=== PATIENT | male | born 2000 | race Caucasian/White ===

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

== ENCOUNTER → 2022-08-19 11:38 | Outpatient (CLI) | payer BC, SELFPAY ==
--- NOTE | 2022-08-19 11:52 | ECG_ITS ---
APPROVED REPORT Exam: Resting ECG HR:77 bpm ECG Measurements Heart Rate 77 AXES OH 137 P 37 QRSd 90 QRS 58 QT 345 T 32 QTc 377 Conclusion SINUS RHYTHM NORMAL ECG UNCONFIRMED REPORT Electronically signed by : Dave Patel MD 08/19/2022 19:43:06
--- NOTE | 2022-08-19 12:13 | XR_ITS ---
FINAL REPORT TECHNIQUE: Chest PA & Lateral CLINICAL HISTORY: PALPITATIONS AND DYSPNEA COMPARISON: February 2018 FINDINGS: 2 views of the chest were performed. The heart size is normal. The mediastinum is within normal limits. There is no acute cardiopulmonary process. There are no pleural effusions. There is no pneumothorax. The bony thorax appears intact. IMPRESSION: No acute cardiopulmonary process. Reviewed, Interpreted and Dictated by Lane Bolivar III, MD Transcribed by Jeremi Louis Authenticated and . [facility]
[2022-08-19 12:48] LABS: Basophils % 0.7 % (0.1-2.0); Eosinophils # 0.1 K/mm3 (0.0-0.4); Eosinophils % 0.9 % (0.1-12.0); Hematocrit 45.4 % (42.0-52.0); Hemoglobin 15.1 g/dL (14.1-18.0); Lymphocytes # 2.3 K/mm3 (0.7-4.5); Lymphocytes % 38.4 % (10-50); Mean Corpuscular HGB Conc 33.4 g/dL (31.8-35.4); Mean Corpuscular Hemoglobin 31.9 pg (27.0-31.2); Mean Corpuscular Volume 95.6 fl (80-94); Mean Platelet Volume 9.4 fl (7.4-10.4); Monocytes # 0.3 K/mm3 (0.1-1.0); Monocytes % 4.7 % (1.7-9.3); Neutrophils # 3.3 K/mm3 (1.8-7.8); Neutrophils % 55.3 % (37.0-80.0); Platelet Count 156 K/mm3 (142-424); Red Blood Count 4.74 M/mm3 (4.60-6.20); Red Cell Distribution Width 12.7 % (11.5-17.5)
[2022-08-19 12:59] LABS: Alanine Aminotransferase 20 U/L (12-78); Albumin Level 4.7 g/dl (3.5-5.0); Alkaline Phosphatase 61 U/L (38-126); Anion Gap 12.4 mEq/L (5-15); Aspartate Amino Transferase 33 U/L (17-59); Bilirubin,Total 0.7 mg/dl (0.2-1.3); Blood Urea Nitrogen 16 mg/dl (9-20); Carbon Dioxide 28 mmol/L (22.0-30.0); Chloride 103 mmol/L (98-107); Estimated Glomerular Filt Rate 123 ml/min (>60); GFR (African American) 149 ML/MIN (>60); Globulin 2.4 g/dL (1.3-3.2); Glucose 94 mg/dl (74-100); Potassium 4.4 mmoL/L (3.5-5.1); Sodium 139 mmol/L (136-145); Total Protein,Serum 7.1 g/dl (6.3-8.2)
[2022-08-19 13:16] LABS: Free Thyroxine Index 3.2 ug/dL (5.93-13.13); T4 (Thyroxine) 10.3 ug/dl (5.53-11.0); Triiodothryronine (T3) Uptake 31 % (23.5-40.5)
[2022-08-19 13:18] LABS: 25-OH Vitamin D, Total 45.1 ng/mL (30-100)
[2022-08-19 13:29] LABS: Thyroid Stimulating Hormone 4.03 uIU/mL (0.465-4.68)
[2022-08-19 13:49] LABS: Vitamin B12 495 pg/mL (239-931)
== END ==
PROVIDERS: PCP Internal Medicine Adolescent Medicine; Visit Provider Internal Medicine Adolescent Medicine
DX: R06.02 Shortness of breath (principal); R00.2 Palpitations; R53.81 Other malaise; R53.83 Other fatigue
CPT/HCPCS: 36415; 71046; 80053; 82306; 82607; 84436; 84443; 84479; 85025; 93005

== ENCOUNTER 2022-08-31 14:47 | Emergency (ER) | payer BC, SELFPAY ==
[2022-08-31 15:00] VITALS: BP 139/70; PULSE 117; RESP 25; TEMP 37.3; O2SAT 97; BMI 24.7
[2022-08-31 15:21] LABS: UTC Influenza A Antigen Negative (Negative); UTC Strep Screen (Rapid) Negative (Negative)
[2022-08-31 15:22] VITALS: BP 139/70; PULSE 117; RESP 25; TEMP 37.3; O2SAT 97
[2022-08-31 15:22] LABS: UTC Influenza B Antigen Negative (Negative)
--- NOTE | 2022-08-31 15:45 | EXP.UTC ---
Discharge Plan Disposition Patient Disposition: Home, Self-Care Prescriptions Prescriptions: New benzonatate 100 mg capsule 100 mg PO TID PRN (Reason: cough) Qty: 30 0RF No Action Vraylar 1.5 mg capsule 1.5 mg PO DAILY Label Comments: TAKE 1 CAPSULE BY MOUTH ONCE DAILY Referrals Follow up/Referrals: Dave Patel MD [Primary Care Provider] - See instructions Clinical Impressions Clinical Impression: Upper respiratory infection, viral, COVID-19 virus test result unknown Stand Alone Forms Stand Alone Forms: Work/School Release Instructions Patient Instructions: DI for Viral Upper Respiratory Infection -- Adult Discharge ED Provider: Maye Foley [facility] HPI General Stated complaint: Sore throat, chest congestion Mode of Arrival: Ambulatory Source of Information: Patient Limitations: No Limitations Time Seen by Provider: 08/31/22 15:25 Description of Symptoms (Recalled from Triage Doc. by RN): PATIENT C/O PRODUCTIVE COUGH, CHEST CONGESTION, SORE THROAT AND FEVER THAT STARTED FRIDAY AND HAS GOTTEN WORSE HEENT Symptoms (Recalled from RN notes): Yes Resp Symptoms (Recalled from RN notes): Yes Skin Symptoms (Recalled from RN notes): No MS Symptoms (Recalled from RN notes): No Functional Status (Recalled from RN notes): WNL History of Present Illness Provider Complaint: Pt reports that at the beginning of the week he started feeling poorly. He reports that his symptoms has progressively gotten worse. He states that he has had a fever, cough, congestion, and sore throat. He reports that his parents recently got over Covid. Related Data Home Medications Medication Instructions Recorded Confirmed cariprazine 1.5 mg capsule 1.5 mg PO DAILY Bipolar 08/31/22 08/31/22 (Vraylar) Previous Rx's Medication Instructions Recorded benzonatate 100 mg capsule 100 mg PO TID PRN cough #30 caps 08/31/22 Allergies Allergy/AdvReac Type Severity Reaction Status Date / Time amoxicillin Allergy Hives Verified 07/23/20 18:25 Worker's Comp Is this a Worker's Comp case?: No [facility] Disclaimer: The information contained in this section may have been updated after the patient was seen, as this information can be updated by other users. Social History Smoking Status: Unknown if ever smoked alcohol intake: never current occupational status: student Travel in the last 8 weeks: None ROS Obtained: Yes All systems reviewed & no additional complaints except as documented Constitutional Constitutional: Reports system reviewed and no additional complaints, except as documented, Reports fever(s) and Reports malaise Eyes Eyes: Reports system reviewed and no additional complaints, except as documented ENT Ears, Nose, Mouth, and Throat: Reports system reviewed and no additional complaints, except as documented Cardiovascular Cardiovascular: Reports system reviewed and no additional complaints, except as documented Respiratory Respiratory: Reports system reviewed and no additional complaints, except as documented and Reports non-productive cough Gastrointestinal Gastrointestingal: Reports system reviewed and no additional complaints, except as documented Genitourinary Male Genitourinary: Reports system reviewed and no additional complaints, except as documented Musculoskeletal Musculoskeletal: Reports system reviewed and no additional complaints, except as documented Integumentary/Breasts Skin/Breast: Reports system reviewed and no additional complaints, except as documented Neurologic Neurologic: Reports system reviewed and no additional complaints, except as documented Endocrine Endocrine: Reports system reviewed and no additional complaints, except as documented Hematologic/Lymphatic Henatologic/Lymphatic: Reports system reviewed and no additional complaints, except as documented Allergic/Immunologic Allergic/Immunologic: Reports system reviewed and no additional complaints, except as docu
== END 2022-08-31 15:57 | disposition home or self-care (01) ==
PROVIDERS: Emergency Provider Nurse Practitioner Family; PCP Internal Medicine Adolescent Medicine
DX: J06.9 Acute upper respiratory infection, unspecified (principal); R05.9 Cough, unspecified; R50.9 Fever, unspecified; B34.9 Viral infection, unspecified; Z20.822 Contact with and (suspected) exposure to COVID-19
CPT/HCPCS: 87804; 87880; 99212; 99214; C9803; G0463; U0003; U0005

== ENCOUNTER → 2022-09-09 08:43 | Outpatient (CLI) | payer BC, SELFPAY | PROVIDERS: PCP Internal Medicine Adolescent Medicine; Visit Provider Nurse Practitioner Family | DX: R06.09 Other forms of dyspnea (principal) | CPT/HCPCS: 93306 ==

== ENCOUNTER 2023-07-16 21:36 | Emergency (ER) | payer BC, SELFPAY ==
[2023-07-16 21:37] VITALS: BP 123/80; PULSE 87; RESP 20; TEMP 36.8; O2SAT 97; BMI 28.5
--- NOTE | 2023-07-16 21:44 | CT_ITS ---
PROCEDURE INFORMATION: Exam: CT Maxillofacial Without Contrast Exam date and time: 07/16/2023 9:54 PM Age: 22 years old Clinical indication: Nose pain; Additional info: Nasal injury TECHNIQUE: Imaging protocol: Computed tomography of the face without contrast. Radiation optimization: All CT scans at this facility use at least one of these dose optimization techniques: automated exposure control; mA and/or kV adjustment per patient size (includes targeted exams where dose is matched to clinical indication); or iterative reconstruction. COMPARISON: No relevant prior studies available. FINDINGS: Orbital cavities: Orbits are normal. Globes are unremarkable. Bones/joints: No acute fracture. Paranasal sinuses: Normal. No air-fluid levels. Soft tissues: Unremarkable. IMPRESSION: No acute findings.
--- NOTE | 2023-07-16 21:49 | HMH.EDGENADL ---
Discharge Plan Disposition Patient Disposition: Home, Self-Care Condition: Good Prescriptions Prescriptions: No Action Vraylar 1.5 mg capsule 1.5 mg PO DAILY Patient Comments: TAKE 1 CAPSULE BY MOUTH ONCE DAILY benzonatate 100 mg capsule 100 mg PO TID PRN (Reason: cough) Qty: 30 0RF Referrals Follow up/Referrals: Roberto Armstrong MD [Physician] - See instructions Rebecca Sanchez APRN [Nurse Practitioner] - See instructions Dave Patel MD [Primary Care Provider] - See instructions Activity Restrictions/Add. Instructions Additional Instructions/Restrictions: You were evaluated in the emergency department today. Follow-up with your primary care provider. We have also provided you with information for ENT. Clinical Impressions Clinical Impression: Injury of nose Stand Alone Forms Stand Alone Forms: Work/School Release Discharge ED Provider: Danielle Herbert General Adult HPI General Chief complaint: PAIN Stated complaint: AO hit in the nose playing basketball Time Seen by Provider: 07/16/23 21:38 History of Present Illness HPI narrative: This patient is a 22-year-old male who denies significant past medical history presenting to the emergency department for evaluation with concern for nose injury. Patient reports he was playing basketball earlier this afternoon when he had his shoulders to his nose. He notes he had bleeding from his right nose. He has had pain since with laughing, eating, and other things that involve moving his face. He is concerned that he broke his nose. No other concerns noted at this time. No loss of consciousness noted. Related Data Home Medications Medication Instructions Recorded Confirmed cariprazine 1.5 mg capsule 1.5 mg PO DAILY Bipolar 08/31/22 08/31/22 (Vraylar) Previous Rx's Medication Instructions Recorded benzonatate 100 mg capsule 100 mg PO TID PRN cough #30 caps 08/31/22 Allergies Allergy/AdvReac Type Severity Reaction Status Date / Time amoxicillin Allergy Hives Verified 07/23/20 18:25 [facility] Disclaimer: The information contained in this section may have been updated after the patient was seen, as this information can be updated by other users. Social History Smoking Status: Never smoker alcohol intake: never current occupational status: student Travel in the last 8 weeks: None ROS Obtained: Yes All systems reviewed & no additional complaints except as documented Physical Exam General General appearance: alert and in no apparent distress Head Head exam: atraumatic and normocephalic Eye Eye exam: Present normal appearance, PERRL and EOMI ENT ENT exam: Present normal oropharynx, mucous membranes moist, normal external ear exam and other (Dried blood in the right nare. Nasal bridge tenderness. No septal deviation. No septal hematoma. No palpable facial instability.) Neck Neck exam: Present normal inspection, full ROM and trachea midline; Absent tenderness Chest Chest inspection: Present normal inspection and symmetric chest wall rise; Absent tenderness Respiratory Respiratory exam: Present normal lung sounds bilaterally; Absent respiratory distress, wheezes, stridor or accessory muscle use Cardiovascular Cardiovascular exam: Present regular rate and normal rhythm Abdominal Exam Abdominal exam: Present soft; Absent distention, tenderness or guarding Extremities Exam Extremities exam: Present normal inspection, full ROM and normal capillary refill; Absent tenderness or edema Back Exam Back exam: Present normal inspection and full ROM; Absent tenderness Neurological Exam Neurological exam: Present alert, oriented X3, CN II-XII intact and normal gait; Absent motor sensory deficit Psychiatric Psychiatric exam: Present normal affect and normal mood Skin Skin exam: Present warm and dry Medical Decision Making Medical Records Medical records reviewed: Yes I reviewed the patient's medical records. Peyman Inquiry Pt receiving controlled substance: No Vital Signs: 07/16/23 21:37 07/16/23 22:20 Temperature 98.2 F 98.2 F Temperature Source Oral Oral Pulse Rate 84 Pulse Rate [Left] 87 Respiratory Rate 20 14 Blood Pressure 128/72 Blood Pressure [Right Arm] 123/80 Blood Pressure Mean [Right Arm] 94 Blood Pressure Source Automatic Cuff Blood Pressure Position Sitting 02 Sat by Pulse Oximetry 97 Oxygen Delivery Method Room Air Room Air Lab Data Lab results reviewed: Yes I reviewed the patient's lab results. Orders (Tests/Meds): ED MEDICATIONS Discontinued Medications Generic Name Dose Route Start Last Admin Trade Name Freq PRN Reason Stop Dose Admin Ibuprofen 800 mg 07/16/23 21:44 07/16/23 21:58 Ibuprofen 400 Mg Tablet PO 07/16/23 21:45 800 mg ONCE ONE Administration ORDERS Category Date Time Status CT facial bones wo con Stat Cat Scan 07/16/23 21:44 Completed Medical Decision Narrative: In summary, this patient is a 22-year-old male presenting to the Emergency Department for evaluation of nasal injury. Differential diagnoses considered include but are not limited to nasal fracture, multiple facial fractures, septal hematoma, septal deviation. Ruling out the most morbid conditions drove assessment. On exam, the patient is well-appearing. He has dried blood in the right nostril with no septal hematoma or septal deviation. Nose is hemostatic and he has no facial instability or other concerns. Workup included CT scan of the face without IV contrast. He was given oral Tylenol and ibuprofen for pain.. I independently interpreted CT scan prior to the radiologist read and noted no acute fracture. Please see their read for final interpretation. At this time, it is felt the patient is appropriate for discharge home with outpatient follow-up and supportive management he was given information for follow-up with ENT if he continues to have significant symptoms, however this is not necessary given that he does not have a significant fracture, as well as sinus precautions. He was discharged in stable condition after all questions were answered Critical Care Critical Care Time Critical Care Time: No
[2023-07-16] MEDS: IBUPROFEN 400 MG TABLET 800 MG PO (21:58)
--- NOTE | 2023-07-16 22:01 | PC.NURSE ---
back from ct
[2023-07-16 22:20] VITALS: BP 128/72; PULSE 84; RESP 14; TEMP 36.8; O2SAT 98
== END 2023-07-16 22:21 | disposition home or self-care (01) ==
PROVIDERS: Emergency Provider Emergency Medicine; PCP Internal Medicine Adolescent Medicine
DX: S09.92XA Unspecified injury of nose, initial encounter (principal); W50.0XXA Accidental hit or strike by another person, initial encounter; Y93.67 Activity, basketball
CPT/HCPCS: 70486; 99284

== ENCOUNTER 2023-10-13 18:07 | Emergency (ER) | payer BC, SELFPAY ==
[2023-10-13 18:25] VITALS: BP 132/82; PULSE 107; RESP 21; TEMP 36.9; O2SAT 96; BMI 29.3
--- NOTE | 2023-10-13 18:54 | ED_ITS ---
Discharge Plan Disposition Patient Disposition: Home, Self-Care Condition: Good Prescriptions Prescriptions: New [id number]-[id number]-[id number] [Bromfed DM] 2-30-10 mg/5 mL syrup 10 ml PO Q4-6H PRN (Reason: cold symptoms) Qty: 200 0RF azithromycin 250 mg tablet See Rx Instructions .ROUTE .COMPLEX Qty: 6 0RF Rx Instructions: For 250 mg dose pack: take 500 mg today (day 1), then 250 mg for 4 days (days 2-5) No Action Vraylar 1.5 mg capsule 1.5 mg PO DAILY Patient Comments: TAKE 1 CAPSULE BY MOUTH ONCE DAILY albuterol sulfate 90 mcg/actuation Hfa Aerosol Inhaler 2 puff INHALATION Q6H PRN (Reason: Asthma) Referrals Follow up/Referrals: Dave Patel MD [Primary Care Provider] - See instructions Activity Restrictions/Add. Instructions Additional Instructions/Restrictions: If symptoms persist or worsen, follow up with primary care provider. Clinical Impressions Clinical Impression: Acute upper respiratory infection Instructions Patient Instructions: DI for Viral Upper Respiratory Infection -- Adult, Acute Bronchitis Discharge ED Provider: Maye Foley [facility] General Stated complaint: Cough,Congestion Mode of Arrival: Ambulatory Source of Information: Patient Limitations: No Limitations Time Seen by Provider: 10/13/23 18:53 Description of Symptoms (Recalled from Triage Doc. by RN): PATIENT C/O COUGH WITH YELLOW MUCOUS, CONGESTION, AND PAIN IN CHEST WITH COUGH X 5 DAYS HEENT Symptoms (Recalled from RN notes): Yes Resp Symptoms (Recalled from RN notes): Yes Skin Symptoms (Recalled from RN notes): No MS Symptoms (Recalled from RN notes): No Functional Status (Recalled from RN notes): WNL History of Present Illness Provider Complaint: Pt reports coughing up yellow mucous, hoarseness, sinus drainage, and pain in chest with cough. Related Data Home Medications Medication Instructions Recorded Confirmed cariprazine 1.5 mg capsule 1.5 mg PO DAILY Bipolar 08/31/22 10/13/23 (Vraylar) albuterol sulfate 90 mcg/actuation 2 puff inhalation Q6H PRN Asthma 10/13/23 10/13/23 aerosol inhaler Previous Rx's Medication Instructions Recorded azithromycin 250 mg tablet See Rx Instructions PO .COMPLEX #6 10/13/23 tabs [id number]-kxuegsdoterzodu-[id number] 10 ml PO Q4-6H PRN cold symptoms 10/13/23 2 mg-30 mg-10 mg/5 mL oral syrup #200 mL (Bromfed DM) Allergies Allergy/AdvReac Type Severity Reaction Status Date / Time amoxicillin Allergy Hives Verified 07/23/20 18:25 Worker's Comp Is this a Worker's Comp case?: No PFSH PFS Disclaimer: The information contained in this section may have been updated after the patient was seen, as this information can be updated by other users. Medical History (Updated 10/13/23 @ 19:02 by Maye Foley APRN) Depression Anxiety Asthma Surgical History (Updated 10/13/23 @ 18:32 by Chata Ortiz RN) History of tympanostomy tube placement Social History Smoking Status: Never smoker alcohol intake: never current occupational status: student Travel in the last 8 weeks: None ROS Obtained: Yes All systems reviewed & no additional complaints except as documented Constitutional Constitutional: Reports system reviewed and no additional complaints, except as documented and Reports malaise Eyes Eyes: Reports system reviewed and no additional complaints, except as documented ENT Ears, Nose, Mouth, and Throat: Reports system reviewed and no additional complaints, except as documented, Reports nasal congestion, Reports nasal discharge and Reports sinus pressure Cardiovascular Cardiovascular: Reports system reviewed and no additional complaints, except as documented Respiratory Respiratory: Reports system reviewed and no additional complaints, except as documented, Reports change in phlegm color, Reports pain with cough and Reports cough with sputum production Gastrointestinal Gastrointestingal: Reports system reviewed and no additional complaints, except as documented Genitourinary Male Genitourinary: Reports system reviewed and no additional complaints, except as documented Musculoskeletal Musculoskeletal: Reports system reviewed and no additional complaints, except as documented Integumentary/Breasts Skin/Breast: Reports system reviewed and no additional complaints, except as documented Neurologic Neurologic: Reports system reviewed and no additional complaints, except as documented Endocrine Endocrine: Reports system reviewed and no additional complaints, except as documented Hematologic/Lymphatic Henatologic/Lymphatic: Reports system reviewed and no additional complaints, except as documented Allergic/Immunologic Allergic/Immunologic: Reports system reviewed and no additional complaints, except as documented Physical Exam General General appearance: alert Comment: ill appearing Head Head exam: atraumatic and normocephalic Eye Eye exam: Present normal appearance Expanded ENT Exam External ear exam: Present normal external inspection Nose exam: Present sinus tenderness Nasal speculum exam: Bilateral: purulent discharge and other (edematous mucosa) Mouth exam: Present normal external inspection Teeth exam: Present normal inspection Throat exam: Present normal inspection Neck Neck exam: Present normal inspection; Absent lymphadenopathy Chest Chest inspection: Present normal inspection and symmetric chest wall rise Respiratory Respiratory exam: Present normal lung sounds bilaterally Cardiovascular Cardiovascular exam: Present regular rate, normal rhythm and normal heart sounds Abdominal Exam Abdominal exam: Present soft and normal bowel sounds Extremities Exam Extremities exam: Present normal inspection Back Exam Back exam: Present normal inspection Neurological Exam Neurological exam: Present alert and oriented X3 Psychiatric Psychiatric exam: Present normal affect and normal mood Skin Skin exam: Present warm, dry and intact Lymphatic Lymphatic Findings: no adenopathy Medical Decision Making Peyman Inquiry Pt receiving controlled substance: No Peyman was queried for this patient: No Vital Signs: 10/13/23 18:25 Temperature 98.5 F Temperature Source Oral Pulse Rate [Left Brachial] 107 H Respiratory Rate 21 Blood Pressure [Left Arm] 132/82 Blood Pressure Mean [Left Arm] 98 Blood Pressure Source [Left Arm] Automatic Cuff Blood Pressure Position [Left Arm] Sitting 02 Sat by Pulse Oximetry 96 Oxygen Delivery Method Room Air
[2023-10-13 19:04] VITALS: BP 132/82; PULSE 107; RESP 21; TEMP 36.9; O2SAT 96
== END 2023-10-13 19:07 | disposition home or self-care (01) ==
PROVIDERS: Emergency Provider Nurse Practitioner Family; PCP Internal Medicine Adolescent Medicine
DX: R05.9 Cough, unspecified (principal); J06.9 Acute upper respiratory infection, unspecified; B34.9 Viral infection, unspecified
CPT/HCPCS: 99212; 99214; G0463

== ENCOUNTER 2023-11-27 10:23 | Emergency (ER) | payer BC, SELFPAY ==
--- NOTE | 2023-11-27 10:36 | EXP.UTC ---
Discharge Plan Disposition Patient Disposition: Home, Self-Care Condition: Good Prescriptions Prescriptions: New ibuprofen [IBU] 800 mg tablet 800 mg PO Q8HP PRN (Reason: Moderate Pain) Qty: 30 0RF No Action Vraylar 1.5 mg capsule 1.5 mg PO DAILY Patient Comments: TAKE 1 CAPSULE BY MOUTH ONCE DAILY albuterol sulfate 90 mcg/actuation Hfa Aerosol Inhaler 2 puff INHALATION Q6H PRN (Reason: Asthma) tgnojrdoubywjru-vytnxcgvd-HE [Bromfed DM] 2-30-10 mg/5 mL syrup 10 ml PO Q4-6H PRN (Reason: cold symptoms) Qty: 200 0RF azithromycin 250 mg tablet See Rx Instructions .ROUTE .COMPLEX Qty: 6 0RF Rx Instructions: For 250 mg dose pack: take 500 mg today (day 1), then 250 mg for 4 days (days 2-5) Referrals Follow up/Referrals: Dave Patel MD [Primary Care Provider] - See instructions Activity Restrictions/Add. Instructions Additional Instructions/Restrictions: Rest the extremity, Elevate the extremity as tolerated while you are resting. Take ibuprofen for pain. I sent in a prescription to your pharmacy. Make sure you follow up with your doctor. You will need serial venous dopplers to make sure this is getting better and not getting worse. Follow up with your regular doctor. GO TO THE ER FOR ANY WORSENING SYMPTOMS Clinical Impressions Clinical Impression: Superficial vein thrombosis Instructions Patient Instructions: Ibuprofen Print Language Print Language: Yi Discharge ED Provider: Jono Pearce [facility] General Stated complaint: pain and swelling in L leg Time Seen by Provider: 11/27/23 10:36 History of Present Illness Provider Complaint: He states that for the past 4 days he has had tenderness, redness and mild swelling of the area on the medial aspect of his right lower thigh. He denies any chest pain and shortness of breath. He does have a family history of dvt, but he denies a personal history of it. Related Data Home Medications ?Medication ?Instructions ?Recorded ?Confirmed cariprazine 1.5 mg capsule 1.5 mg PO DAILY Bipolar 08/31/22 10/13/23 (Vraylar) albuterol sulfate 90 mcg/actuation 2 puff inhalation Q6H PRN Asthma 10/13/23 10/13/23 aerosol inhaler Previous Rx's ?Medication ?Instructions ?Recorded azithromycin 250 mg tablet See Rx Instructions PO .COMPLEX #6 10/13/23 tabs onvosuwkeyayjqb-mybgbreedlxcgum-TZ 10 ml PO Q4-6H PRN cold symptoms 10/13/23 2 mg-30 mg-10 mg/5 mL oral syrup #200 mL (Bromfed DM) ibuprofen 800 mg tablet (IBU) 800 mg PO Q8HP PRN Moderate Pain 11/27/23 #30 tabs Allergies Allergy/AdvReac Type Severity Reaction Status Date / Time amoxicillin Allergy Hives Verified 11/27/23 10:47 [facility] Disclaimer: The information contained in this section may have been updated after the patient was seen, as this information can be updated by other users. Medical History (Updated 11/27/23 @ 13:01 by Jono Pearce APRN) Depression Anxiety Asthma Surgical History (Updated 10/13/23 @ 18:32 by Chata Ortiz RN) History of tympanostomy tube placement Social History Smoking Status: Never smoker alcohol intake: never current occupational status: student Travel in the last 8 weeks: None ROS Obtained: Yes All systems reviewed & no additional complaints except as documented Constitutional Constitutional: Denies chills and Denies fever(s) Eyes Eyes: Denies eye discharge ENT Ears, Nose, Mouth, and Throat: Denies dizziness, Denies otalgia and Denies sore throat Cardiovascular Cardiovascular: Denies chest pain Respiratory Respiratory: Denies shortness of breath, Denies chest congestion, Denies cough, Denies stridor and Denies wheezing Gastrointestinal Gastrointestingal: Denies nausea or vomiting Musculoskeletal Musculoskeletal: Reports system reviewed and no additional complaints, except as documented and Denies arthralgias Integumentary/Breasts Skin/Breast: Denies rash Neurologic Neurologic: Denies dizziness and Denies paresthesias Allergic/Immunologic Allergic/Immunologic: Denies wheezing Physical Exam General General appearance: alert and in no apparent distress Head Head exam: atraumatic, normocephalic and normal inspection Eye Eye exam: Present normal appearance, PERRL and EOMI ENT ENT exam: Present normal exam, normal oropharynx, mucous membranes moist, TM's normal bilaterally and normal external ear exam Neck Neck exam: Present normal inspection, full ROM and trachea midline; Absent meningismus or lymphadenopathy Chest Chest inspection: Present normal inspection and symmetric chest wall rise; Absent tenderness Respiratory Respiratory exam: Present normal lung sounds bilaterally; Absent respiratory distress Cardiovascular Cardiovascular exam: Present regular rate and normal rhythm; Absent JVD Abdominal Exam Abdominal exam: Present soft and normal bowel sounds; Absent distention, tenderness or guarding Extremities Exam Extremities exam: Present normal inspection, full ROM and normal capillary refill; Absent calf tenderness Back Exam Back exam: Present normal inspection; Absent tenderness Neurological Exam Neurological exam: Present alert and oriented X3 Psychiatric Psychiatric exam: Present normal affect and normal mood Skin Skin exam: Present warm, dry, intact and normal color Lymphatic Lymphatic Findings: no adenopathy Medical Decision Making Medical Records Medical records reviewed: No I reviewed the patient's medical records. Peyman Inquiry Pt receiving controlled substance: No US Data US Images: Lower Extremity
[2023-11-27 10:42] VITALS: BP 131/70; PULSE 92; RESP 16; TEMP 36.9; O2SAT 97; BMI 30.4
--- NOTE | 2023-11-27 11:00 | CA_ITS ---
FINAL REPORT TECHNIQUE: Ultrasound images of the deep venous system were obtained from the left groin to the calf veins. CLINICAL HISTORY: left leg pain,swelling,redness. family h/o dvt FINDINGS: The deep venous system is normally compressible. Normal flow is identified. There is visible thrombus in lack of compressibility of the left greater saphenous vein consistent with superficial venous thrombus. IMPRESSION: No evidence of left lower extremity DVT. Superficial venous thrombus of the greater saphenous vein. Reviewed, Interpreted and Dictated by Abelino Lew MD Transcribed by Sonal Lynn Authenticated and [facility]
--- NOTE | 2023-11-27 11:04 | PC.NURSE ---
I notified radiology of the order for a venous doppler
--- NOTE | 2023-11-27 12:42 | PC.NURSE ---
I updated the pt that we are still waiting for the official radiology report. no new complaints at this time, no needs voiced.
[2023-11-27 13:13] VITALS: BP 0/0; PULSE 0; RESP 0; TEMP -17.7; TEMP 0
== END 2023-11-27 13:13 | disposition home or self-care (01) ==
PROVIDERS: Emergency Provider Nurse Practitioner Family; PCP Internal Medicine Adolescent Medicine
DX: I82.812 Embolism and thrombosis of superficial veins of left lower extremity (principal); M79.662 Pain in left lower leg
CPT/HCPCS: 93971; 99212; 99214; G0463

== ENCOUNTER 2023-12-05 01:52 | Observation (INO) | payer BC, SELFPAY ==
[2023-12-05] VITALS (7 sets, daily range): BP systolic 119–123; BP diastolic 65–84; PULSE 75–92; RESP 13–20; TEMP 36.4–36.8; O2SAT 96–97; BMI 30.4; BMI 31.1
--- NOTE | 2023-12-05 01:49 | ECG_ITS ---
APPROVED REPORT Exam: Resting ECG HR:93 bpm ECG Measurements Heart Rate 93 AXES MT 128 P 21 QRSd 94 QRS 30 QT 338 T -5 QTc 388 Conclusion SINUS RHYTHM NONSPECIFIC T-WAVE ABNORMALITY BORDERLINE ECG Q waves and T wave inversion in lead III, potential pulmonary pattern/right heart strain, no STEMI Electronically signed by : FEDERICO MUKHERJEE, 12/05/2023 03:52:15
--- NOTE | 2023-12-05 01:57 | CT_ITS ---
PROCEDURE INFORMATION: Exam: CTA Chest With Contrast Exam date and time: 12/05/2023 2:34 AM Age: 23 years old Clinical indication: Shortness of breath; Additional info: SOA cp known lower extremity clot TECHNIQUE: Imaging protocol: Computed tomographic angiography of the chest with contrast. Exam focused on the arteries. 3D rendering (Not supervised by radiologist): MIP and/or 3D reconstructed images were created by the technologist. Radiation optimization: All CT scans at this facility use at least one of these dose optimization techniques: automated exposure control; mA and/or kV adjustment per patient size (includes targeted exams where dose is matched to clinical indication); or iterative reconstruction. Contrast material: ISOVUE; Contrast volume: 70 ml; Contrast route: INTRAVENOUS (IV); COMPARISON: CR XR CHEST PORTABLE 01/04/2024 02:22 FINDINGS: Pulmonary arteries: Multiple bilateral segmental pulmonary arterial emboli. The clot burden is [id number]-de-[id number]. Aorta: Unremarkable. No aortic aneurysm. No aortic dissection. Lungs: Bilateral lower lobe groundglass opacities are most likely pulmonary infarctions. Pleural spaces: Small pleural effusions, right larger than left. Heart: Unremarkable. No cardiomegaly. No pericardial effusion. Heart RV/LV ratio: RV/LV ratio is approximately 1.3. Lymph nodes: Unremarkable. No enlarged lymph nodes. Bones/joints: Unremarkable. No acute fracture. Soft tissues: Unremarkable. IMPRESSION: 1. Multiple bilateral segmental pulmonary arterial emboli. The clot burden is bpgp-es-trwcodvm. Mildly elevated RV/LV ratio may indicate early right heart strain. 2. Bilateral lower lobe groundglass opacities are most likely pulmonary infarctions. 3. Small pleural effusions, right larger than left.
--- NOTE | 2023-12-05 01:57 | XR_ITS ---
PROCEDURE INFORMATION: Exam: XR Chest Exam date and time: 12/05/2023 2:22 AM Age: 23 years old Clinical indication: Pain; Chest pressure; Additional info: Cp SOA TECHNIQUE: Imaging protocol: Radiologic exam of the chest. Views: 1 view. COMPARISON: CR XR CHEST PORTABLE 01/04/2024 02:22 FINDINGS: Lungs: Unremarkable. No consolidation. Pleural spaces: Unremarkable. No pleural effusion. No pneumothorax. Heart/Mediastinum: Unremarkable. No cardiomegaly. Bones/joints: Unremarkable. IMPRESSION: No acute findings.
[2023-12-05 02:08] LABS: Basophils # 0.1 K/mm3 (0-0.2); Basophils % 1.2 % (0.1-2.0); Eosinophils # 0.3 K/mm3 (0.0-0.4); Eosinophils % 3.6 % (0.1-12.0); Hematocrit 40.6 % (42.0-52.0); Hemoglobin 13.5 g/dL (14.1-18.0); Lymphocytes # 3.4 K/mm3 (0.7-4.5); Lymphocytes % 37.1 % (10-50); Mean Corpuscular HGB Conc 33.3 g/dL (31.8-35.4); Mean Corpuscular Hemoglobin 31.3 pg (27.0-31.2); Monocytes # 0.4 K/mm3 (0.1-1.0); Monocytes % 4.2 % (1.7-9.3); Neutrophils # 4.9 K/mm3 (1.8-7.8); Neutrophils % 53.8 % (37.0-80.0); Platelet Count 180 K/mm3 (142-424); Red Blood Count 4.32 M/mm3 (4.60-6.20); White Blood Count 9.2 K/mm3 (4.8-10.8)
[2023-12-05 02:16] LABS: INR 0.95 (0.9-1.1); Prothrombin Time 10.7 seconds (10.1-12.5)
[2023-12-05 02:19] LABS: Alanine Aminotransferase 28 U/L (12-78); Albumin Level 3.9 g/dl (3.5-5.0); Albumin/Globulin Ratio 1.3 (1.1-1.8); Alkaline Phosphatase 65 U/L (38-126); Anion Gap 9.8 mEq/L (5-15); Aspartate Amino Transferase 37 U/L (17-59); Bilirubin,Total 0.6 mg/dl (0.2-1.3); Blood Urea Nitrogen 15 mg/dl (9-20); Calcium 8.5 mg/dl (8.4-10.2); Carbon Dioxide 26 mmol/L (22.0-30.0); Chloride 106 mmol/L (98-107); Creatinine Clearance Estimated 232 mL/min (50-200); Estimated Glomerular Filt Rate 121 ml/min (>60); GFR (African American) 146 ML/MIN (>60); Globulin 3.1 g/dL (1.3-3.2); Glucose 110 mg/dl (74-100); Potassium 3.8 mmoL/L (3.5-5.1); Sodium 138 mmol/L (136-145)
[2023-12-05 02:31] LABS: Troponin I < 0.01 ng/ml (0.00-0.034)
[2023-12-05] MEDS: IOPAMIDOL-370 (76%);100ML BOTTLE 70 ML IV (02:40)
[2023-12-05] MEDS: 0.9 % SODIUM CHLORIDE 50 ML VIAL IV (02:41)
[2023-12-05] MEDS: SODIUM CHLORIDE 0.9% 10ML SYR (RAD ONLY) 10 ML IV (02:41)
--- NOTE | 2023-12-05 02:43 | HMH.EDCP ---
Discharge Plan Disposition Patient Disposition: Admitted Condition: Good Prescriptions Prescriptions: No Action Vraylar 1.5 mg capsule 1.5 mg PO DAILY Patient Comments: TAKE 1 CAPSULE BY MOUTH ONCE DAILY albuterol sulfate 90 mcg/actuation Hfa Aerosol Inhaler 2 puff INHALATION Q6H PRN (Reason: Asthma) dgepgxuqjueulck-blxjrdjxw-LP [Bromfed DM] 2-30-10 mg/5 mL syrup 10 ml PO Q4-6H PRN (Reason: cold symptoms) Qty: 200 0RF azithromycin 250 mg tablet See Rx Instructions .ROUTE .COMPLEX Qty: 6 0RF Rx Instructions: For 250 mg dose pack: take 500 mg today (day 1), then 250 mg for 4 days (days 2-5) ibuprofen [IBU] 800 mg tablet 800 mg PO Q8HP PRN (Reason: Moderate Pain) Qty: 30 0RF Referrals Follow up/Referrals: Provider,Referral, MD [Primary Care Provider] - See instructions Clinical Impressions Clinical Impression: Superficial vein thrombosis, Right-sided chest pain Pulmonary emboli Qualifiers: Pulmonary embolism type: other Chronicity: acute Acute cor pulmonale presence: unspecified Qualified Code(s): I26.99 - Other pulmonary embolism without acute cor pulmonale Print Language Print Language: Pakistani Discharge ED Provider: Arnold Cutler General Chief Complaint: Chest Pain Stated Complaint: Chest pain Time Seen by Provider: 12/05/23 01:56 Mode of Arrival: Ambulatory Source of Information: Patient and Parent(s) Limitations: No Limitations Description of Symptoms (Recalled from ER Triage Doc. by RN): Patient reports sudden onset of right sided chest and shoulder pain, rated 8/10, at approximately 0130 this AM. Patient reports shortness of breath with this pain. Patient was recently diagnosed with a superficial blood clot to the left leg that was being treated with 800mg of ibuprofen TID, patient was seen by Dr. Patel on Friday who added 235mg aspirin daily which he started 12/04/23. Patient denies nausea or vomiting, denies diaphoresis at this time. History of Present Illness HPI narrative: 23-year-old male presents to the ER for concerns of sudden onset right sided chest and shoulder pain. Patient is pain onset around 1:30 AM. He reported shortness of breath and worse pain with deep breathing. Patient was recently diagnosed with a superficial blood clot in the left leg being treated with ibuprofen and recently aspirin was added to his daily regimen by his primary care physician. Patient reports no other areas of pain in the arms or legs, no calf swelling, no recent travel. Reported family history of blood clots. Patient has never had 1 himself until the recently identified left lower extremity clot. I reviewed recent records including the encounter where he was diagnosed with a superficial vein thrombus in the left medial thigh. He was started on ibuprofen for management at that time. Patient denies fevers, cough, congestion, abdominal pain, vomiting, diarrhea, or other associated symptoms such as dizziness or lightheadedness. Related Data Home Medications ?Medication ?Instructions ?Recorded ?Confirmed cariprazine 1.5 mg capsule 1.5 mg PO DAILY Bipolar 08/31/22 10/13/23 (Vraylar) albuterol sulfate 90 mcg/actuation 2 puff inhalation Q6H PRN Asthma 10/13/23 10/13/23 aerosol inhaler Previous Rx's ?Medication ?Instructions ?Recorded azithromycin 250 mg tablet See Rx Instructions PO .COMPLEX #6 10/13/23 tabs pdtaamgitugtqwh-ztdbxbjfswuosue-RA 10 ml PO Q4-6H PRN cold symptoms 10/13/23 2 mg-30 mg-10 mg/5 mL oral syrup #200 mL (Bromfed DM) ibuprofen 800 mg tablet (IBU) 800 mg PO Q8HP PRN Moderate Pain 11/27/23 #30 tabs Allergies Allergy/AdvReac Type Severity Reaction Status Date / Time amoxicillin Allergy Hives Verified 11/27/23 10:47 [facility] Disclaimer: The information contained in this section may have been updated after the patient was seen, as this information can be updated by other users. Medical History (Updated 12/05/23 @ 03:42 by Arnold Cutler MD) Depression Anxiety Asthma Surgical History (Updated 10/13/23 @ 18:32 by Chata Ortiz RN) History of tympanostomy tube placement Social History Smoking Status: Never smoker alcohol intake: never current occupational status: student Travel in the last 8 weeks: None ROS Obtained: Yes All systems reviewed & no additional complaints except as documented Constitutional Constitutional: Denies chills, Denies fever(s), Denies headache(s) and Denies weakness Eyes Eyes: Denies change in vision ENT Ears, Nose, Mouth, and Throat: Denies dizziness, Denies headache(s), Denies nasal congestion and Denies sore throat Cardiovascular Cardiovascular: Reports chest pain (Pleuritic, worse with deep breathing), Reports dyspnea, Denies edema and Denies leg edema Respiratory Respiratory: Denies cough and Reports dyspnea Gastrointestinal Gastrointestingal: Denies abdominal pain, constipation, diarrhea, nausea or vomiting Genitourinary Male Genitourinary: Denies difficulty urinating Musculoskeletal Musculoskeletal: Denies arthralgias, Denies myalgias, Denies numbness and Denies tingling Integumentary/Breasts Skin/Breast: Denies change in pigmentation Neurologic Neurologic: Denies dizziness, Denies headache(s), Denies numbness, Denies tingling and Denies weakness Physical Exam General General appearance: alert and in no apparent distress Head Head exam: atraumatic and normocephalic Eye Eye exam: Present PERRL and EOMI ENT ENT exam: Present mucous membranes moist Neck Neck exam: Present normal inspection and full ROM Chest Chest inspection: Present symmetric chest wall rise Respiratory Respiratory exam: Present normal lung sounds bilaterally; Absent respiratory distress, wheezes or stridor Cardiovascular Cardiovascular exam: Present regular rate (Regular rate, however patient is borderline tachycardic with rates in the 90s) and normal rhythm Abdominal Exam Abdominal exam: Present soft; Absent distention or tenderness Extremities Exam Extremities exam: Present full ROM and tenderness (Mild tenderness of the left medial thigh with slight erythema, no significant swelling); Absent edema or calf tenderness Neurological Exam Neurological exam: Present alert and oriented X3; Absent motor sensory deficit Psychiatric Psychiatric exam: Present normal affect and normal mood Skin Skin exam: Present warm and dry HEART Score HEART Score HEART Score assessment performed?: Yes History (anamnesis): Moderately suspicious ECG: Non-specific disturbance Age: <45 years Risk factors: 1-2 risk factors Troponin: </= normal limit HEART Score: 3 Procedures Miscellaneous Procedure Procedure Performed: Limited DVT ultrasound Indication: Limited compression ultrasonography of the left lower extremity was performed to evaluate for non-compressibility of the deep veins in the patient. The ultrasound was performed with the following indications, as noted in the H&P: Left leg pain, swelling, chest pain, shortness of breath, known superficial vein thrombus in the left medial thigh Identified structures: Left common femoral vein, femoral vein, popliteal vein were examined Findings: Upper extremity: Lower Extremity: Left CFV: Good compressibility Left FV good compressibility Left Popliteal vein: Good compressibility There is a superficial vein of the left medial thigh that has noncompressibility from the level of the knee proximally approximately 10 inches to the left medial mid-upper thigh in the greater saphenous vein Impression: Normal left lower extremity DVT ultrasound, however there is superficial venous thrombus as has been previously identified on the patient Images were saved to permanent archive The study was technically adequate CPT: 99857-66-UJ This study was performed by me, and I personally interpreted all images/videos. Based on my clinical judgement, these images were adequate and did not necessitate further imaging. Critical Care Critical Care Time Critical Care Time: Yes Attestation: On 12/05/23, the high probability of a clinically significant, sudden or life threatening deterioration of the following system(s) required my full and direct attention, intervention and personal management. The time I documented below is in addition to time spent performing reported procedures but includes the following listed in this critical care notation. Total Time Total Critical Care Time: 40 Medical Decision Making Medical Records Medical records reviewed: Yes I reviewed the patient's medical records. MR Comment: See HPI for details, Doppler ultrasound of left lower extremity from the beginning of November demonstrates greater saphenous superficial vein thrombus Peyman Inquiry Pt receiving controlled substance: No Vital Signs Vital Signs: 12/05/23 01:52 12/05/23 02:02 Temperature 97.6 F Temperature Source Oral Pulse Rate [Left Radial] 92 H Respiratory Rate 20 Blood Pressure 119/65 Blood Pressure [Right Arm] 121/84 Blood Pressure Mean 83 Blood Pressure Mean [Right Arm] 96 Blood Pressure Source [Right Arm] Automatic Cuff Blood Pressure Position [Right Arm] Sitting 02 Sat by Pulse Oximetry 97 Oxygen Delivery Method Room Air Lab Data Labs: Lab Results 12/05/23 02:00: WBC 9.2, RBC 4.32 L, Hgb 13.5 L, Hct 40.6 L, MCV 94.0, MCH 31.3 H, MCHC 33.3, RDW 13.0, Plt Count 180, MPV 9.0, Neut % (Auto) 53.8, Lymph % (Auto) 37.1, Robeson % (Auto) 4.2, Eos % (Auto) 3.6, Baso % (Auto) 1.2, Neut # (Auto) 4.9, Lymph # (Auto) 3.4, Robeson # (Auto) 0.4, Eos # (Auto) 0.3, Baso # (Auto) 0.1, PT 10.7, INR 0.95, Sodium 138, Potassium 3.8, Chloride 106, Carbon Dioxide 26, Anion Gap 9.8, BUN 15, Creatinine 0.80, Estimated Creat Clear 232, Estimated GFR 121, Est GFR ( Amer) 146, Glucose 110 H, Calcium 8.5, Total Bilirubin 0.6, AST 37, ALT 28, Alkaline Phosphatase 65, Troponin I < 0.01, Total Protein 7.0, Albumin 3.9, Globulin 3.1, Albumin/Globulin Ratio 1.3 12/05/23 02:00 12/05/23 02:00 Response Orders (Tests/Meds): ED MEDICATIONS Discontinued Medications Generic Name Dose Route Start Last Admin Trade Name Freq PRN Reason Stop Dose Admin Enoxaparin Sodium 110 mg 12/05/23 03:36 Enoxaparin 120mg/0.8ml Syringe SQ 12/05/23 03:37 ONCE ONE Iopamidol 70 ml 12/05/23 02:39 12/05/23 02:40 Iopamidol-370 (76%);100ml Bottle IV 12/05/23 02:40 70 ml ONCE ONE Administration Sodium Chloride 50 ml 12/05/23 02:39 12/05/23 02:41 0.9 % Sodium Chloride 50 Ml Vial IV 12/05/23 02:40 50 ml ONCE ONE Administration Sodium Chloride 10 ml 12/05/23 02:39 12/05/23 02:41 Sodium Chloride 0.9% 10ml Syr (Rad Only) IV 12/05/23 02:40 10 ml ONCE ONE Administration ORDERS Category Date Time Status CT angio chest PE protocol Stat Cat Scan 12/05/23 01:57 Completed CXR --portable [XR chest portable] Stat Exams 12/05/23 01:57 Completed POCUS Point of Care (ER Only) Stat Exams 12/05/23 01:58 Taken CBC w/Auto Diff [Complete Blood Count Auto Diff] Stat Lab 12/05/23 02:00 Completed CMP [Comprehensive Metabolic Panel] Stat Lab 12/05/23 02:00 Completed PT INR [Prothrombin Time INR] Stat Lab 12/05/23 02:00 Completed Trop I [Troponin I] Stat Lab 12/05/23 02:00 Completed Troponin I Q3H Lab 12/05/23 05:00 Ordered Troponin I Q3H Lab 12/05/23 08:00 Ordered MDM Narrative Medical Decision Narrative: In summary, this 23-year-old male presents to the emergency department today with chest pain worse with deep inspiration, sudden onset, in the setting of known superficial vein thrombus which is a comorbidity of current condition and increases risk of complication such as PE. On initial evaluation patient is hemodynamically stable, afebrile, borderline tachycardic, not in extremis, pulmonary exam benign, not requiring oxygen, no peripheral edema, no calf swelling, mild tenderness to palpation along the medial aspect of the distal left thigh where patient reports he has known clot. Differential diagnosis includes but is not limited to ACS, PE, arrhythmia, electrolyte abnormality, dehydration, pulmonary infarct, pneumonia, pneumothorax, musculoskeletal pain. Based on these concerns, I ordered cardiac workup, CTA PE, serum labs, POCUS. ECG personally interpreted demonstrates normal sinus rhythm, rate 93, normal axis, no STEMI. Patient does have Q waves in lead III which are nonspecific but can be consistent with right heart strain or pulmonary pathology. Labs personally reviewed demonstrate no leukocytosis, trace anemia, normal platelets, PT/INR normal, CMP nonactionable, initial troponin undetectably low at less than 0.01, serial troponin is necessary given the acute onset of patient's chest pain prior to arrival. XR personally interpreted demonstrates no acute intrathoracic abnormality, see radiology read for final interpretation. [id number]-za-[id number] ultrasound personally performed and interpreted does not demonstrate DVT in the left lower extremity, however there is a large segment of superficial vein thrombus in the greater saphenous. See radiology read for final interpretation. CT imaging personally interpreted demonstrates findings of PE in the bilateral pulmonary arteries, no saddle PE, I do appreciate findings of pulmonary infarct in the bilateral lower lobes. See radiology read for final interpretation. Vrad radiologist called and we had a discussion about patient's CT findings. He agrees that there are findings of PE and pulmonary infarct. He also mentions potential mild right heart strain. I am starting therapeutic Lovenox. I believe patient requires admission for treatment of PE, workup for coagulopathy, and cardiac monitoring, patient and family are amenable to this. I called Dr. Luis and discussed this patient with him. We also discussed that patient has unprovoked PE and will require hematologic workup in addition to echo, serial troponins. He agrees with the plan for admission. Repeat ECG personally interpreted demonstrate sinus rhythm, rate 88, normal LA and QTc, patient has more obvious Q waves in lead III as well as T wave inversions consistent with PE/right heart strain. No STEMI. I called the hospitalist and discussed this patient's findings with him including the bilateral unprovoked PE, superficial vein thrombus identified on uwurv-tc-byqy ultrasound, serial troponins, PE treatment, cardiac monitoring, echo, and possibly formal bilateral DVT ultrasounds of the lower extremities. Patient was accepted by the hospitalist for admission.
--- NOTE | 2023-12-05 03:30 | PC.NURSE ---
Dr Cutler in speaking with pt and updating on test results, paged Dr Luis for Dr Cutler
--- NOTE | 2023-12-05 03:32 | PC.NURSE ---
Dr. Cutler speaking with Dr. Luis
--- NOTE | 2023-12-05 03:36 | ECG_ITS ---
APPROVED REPORT Exam: Resting ECG HR:88 bpm ECG Measurements Heart Rate 88 AXES OR 154 P 32 QRSd 94 QRS 31 QT 340 T -1 QTc 385 Conclusion SINUS RHYTHM Q waves with inverted T waves in lead III, consider pulmonary pattern vs right heart strain Electronically signed by : FEDERICO MUKHERJEE, 12/05/2023 06:30:03
--- NOTE | 2023-12-05 03:40 | PC.NURSE ---
Consulted with pharmacy, spoke with Charles and dosed lovenox 1mg/kg. Confirmed dosing with pharmacy.
--- NOTE | 2023-12-05 03:41 | P.HP_ITS ---
History of Present Illness *Admission Date: 12/05/23 *Reason for visit:: CP *History of present illness: This is a 23-year-old male obese presented to the ER for concerns of sudden onset right sided chest and shoulder pain started around 1:30 AM. He also reported shortness of breath and worse pain with deep breathing. Patient was recently diagnosed with a superficial blood clot in the left leg being treated with ibuprofen and recently aspirin was added to his daily regimen by his [facility] physician. Patient reports no other areas of pain in the arms or legs, no calf swelling, no recent travel. Of note he reported left lower extremity clot, as well as family history of blood clots. Patient recently was diagnosed with a superficial vein thrombus in the left medial thigh. He was started on ibuprofen for management at that time. Patient denies fevers, cough, congestion, abdominal pain, vomiting, diarrhea, or other associated symptoms such as dizziness or lightheadedness. [facility] Disclaimer: The information contained in this section may have been updated after the patient was seen, as this information can be updated by other users. Medical History (Updated 12/05/23 @ 11:13 by Rosita Mitchell MD) DVT (deep venous thrombosis) Bilateral pulmonary embolism Bipolar 1 disorder Depression Anxiety Asthma Surgical History History of tympanostomy tube placement Family History Grandmother Blood clot in leg Social History Smoking Status: Never smoker alcohol intake: never current occupational status: student Travel in the last 8 weeks: None Review of Systems Review of Systems Review of systems:: pertinent systems reviewed and negative unless documented below Constitutional Constitutional: Denies headache(s) and Denies weakness ENT Ears, Nose, Mouth, and Throat: Denies dizziness and Denies headache(s) *Musculoskeletal Musculoskeletal: Denies numbness and Denies tingling *Neurologic Neurologic: Denies dizziness, Denies headache(s), Denies numbness, Denies tingling and Denies weakness Meds Home Medications and Allergies Home Medications ?Medication ?Instructions ?Recorded ?Confirmed ?Type albuterol sulfate 90 mcg/actuation 2 puff inhalation Q6H PRN Asthma 10/13/23 12/05/23 History aerosol inhaler ibuprofen 800 mg tablet (IBU) 800 mg PO Q8HP PRN Moderate Pain 11/27/23 12/05/23 Rx #30 tabs fluoxetine 40 mg capsule 40 mg PO DAILY 12/05/23 12/05/23 History olanzapine 15 mg-samidorphan 10 mg 1 tab PO HS 12/05/23 12/05/23 History tablet (Lybalvi) New Prescriptions to Start Prescriptions: Allergies Allergy/AdvReac Type Severity Reaction Status Date / Time amoxicillin Allergy Hives Verified 11/27/23 10:47 Exam Data for Last 24 hours Vital signs and Labs for Last 24 Hours: Temp Pulse Resp BP Pulse Ox O2 Del Method 97.6 F 92 H 20 119/65 97 Room Air 12/05/23 01:52 12/05/23 01:52 12/05/23 01:52 12/05/23 02:02 12/05/23 01:52 12/05/23 01:52 Laboratory Results - last 24 hr 12/05/23 02:00: WBC 9.2, RBC 4.32 L, Hgb 13.5 L, Hct 40.6 L, MCV 94.0, MCH 31.3 H, MCHC 33.3, RDW 13.0, Plt Count 180, MPV 9.0, Neut % (Auto) 53.8, Lymph % (Auto) 37.1, Sutton % (Auto) 4.2, Eos % (Auto) 3.6, Baso % (Auto) 1.2, Neut # (Auto) 4.9, Lymph # (Auto) 3.4, Sutton # (Auto) 0.4, Eos # (Auto) 0.3, Baso # (Auto) 0.1, PT 10.7, INR 0.95, Sodium 138, Potassium 3.8, Chloride 106, Carbon Dioxide 26, Anion Gap 9.8, BUN 15, Creatinine 0.80, Estimated Creat Clear 232, Estimated GFR 121, Est GFR ( Amer) 146, Glucose 110 H, Calcium 8.5, Total Bilirubin 0.6, AST 37, ALT 28, Alkaline Phosphatase 65, Troponin I < 0.01, Total Protein 7.0, Albumin 3.9, Globulin 3.1, Albumin/Globulin Ratio 1.3 I & O for Last 24 hours: Intake & Output 12/02/23 12/03/23 12/04/23 12/05/23 23:59 23:59 23:59 23:59 Weight 113.398 kg Constitutional Constitutional: no acute distress *Routine HEENT Exam Head: Present normocephalic Eye: Present EOMI and PERRL ENT: Present mucous membranes moist *Routine Neck Exam Neck: Present supple; Absent lymphadenopathy *Routine Respiratory Exam Respiratory: Present CTA bilaterally *Routine Cardiovascular Exam Cardiovascular: Present RRR *Routine Abdominal Exam Abdominal: Present soft and normoactive bowel sounds; Absent tenderness *Routine Rectal Exam Rectal:: deferred *Routine Genitalia Exam Genitalia:: deferred *Routine Extremities Exam Extremities: Absent cyanosis, clubbing or edema *Routine Skin Exam Skin: Present warm; Absent rash *Routine Neurological Exam Neurological: Present alert and oriented X3 H&P: Result Imaging and Cardiology EKG: Status: image reviewed by me, Preliminary report and final report CT scan - chest: Status: image reviewed by me, Preliminary report and final report Assessment and Plan *Assessment and plan (1) Pulmonary emboli: Status: Acute Qualifiers: Acute cor pulmonale presence: unspecified Chronicity: acute Pulmonary embolism type: other Qualified Code(s): I26.99 - Other pulmonary embolism without acute cor pulmonale Category: Medical Code(s): I26.99 - Other pulmonary embolism without acute cor pulmonale (2) Superficial vein thrombosis: Status: Acute Category: Medical Code(s): I82.890 - Acute embolism and thrombosis of other specified veins (3) Bipolar 1 disorder: Status: Acute Category: Medical Code(s): F31.9 - Bipolar disorder, unspecified (4) Obesity (BMI 30-39.9): Status: Acute Category: Medical Code(s): E66.9 - Obesity, unspecified Plan 23-year-old male obese presented to the ER for concerns of sudden onset right sided chest and shoulder pain started around 1:30 AM. He also reported shortness of breath and worse pain with deep breathing. Patient was recently diagnosed with a superficial blood clot. CTA demonstrates findings of PE in the bilateral pulmonary arteries, no saddle PE. Discussed with ED. agreed for inpatient management. Plan: -Acute PE with right heart strain: Hx of superficial vein thrombosis Admit patient start O2 supplement. cont. monitor for o2 sat Pulmo and cardio consult started on full dose Lovenox monitor for rest of VS repeat labs in the morning monitor off abx obtain LE US to rule out DVT Bipolar dz: on fluoxetine and lybalvi obesity : educated on weight management. protonix for GI ppx Full code Attending attestation Patient was seen and evaluated at the bedside myself, agree with QUANG note.
--- NOTE | 2023-12-05 03:42 | PC.NURSE ---
Notified house construction administrator of need for bed assignment, hospitalist admitting.
[2023-12-05] MEDS: ENOXAPARIN 120MG/0.8ML SYRINGE 110 MG SQ (03:44)
--- NOTE | 2023-12-05 03:44 | CA_ITS ---
FINAL REPORT CLINICAL HISTORY: rule out DVT RECENT HISTORY OF SUPERFICIAL CLOT OF GSV LEFT LEG FINDINGS: Color Doppler, duplex Doppler and compression sonography of the bilateral lower extremities was performed. There is no evidence of deep venous thrombosis from the level of the groin to the calf. The deep veins are patent and compressible. There is superficial clot noted in the left greater saphenous vein. IMPRESSION: No evidence of deep venous thrombosis bilateral lower extremities. Superficial clot in the left greater saphenous vein. Reviewed, Interpreted and Dictated by Lane Bolivar III, MD Transcribed by Yane Zimmerman Authenticated and [facility]
--- NOTE | 2023-12-05 04:54 | PC.NURSE ---
Alert and oriented. Parents at bedside, admitted this shift. Pt staes chest pain is down to 4/10 on right upper chest, states no pain medication needed at this time. Lung sounds clear. Abdomen soft and nontender. Independent in room. Pulses equal, no edema noted to lower extremities. Call light in reach.
[2023-12-05 06:09] LABS: Basophils # 0.1 K/mm3 (0-0.2); Basophils % 0.6 % (0.1-2.0); Eosinophils # 0.2 K/mm3 (0.0-0.4); Eosinophils % 2.2 % (0.1-12.0); Hematocrit 39.5 % (42.0-52.0); Hemoglobin 13.2 g/dL (14.1-18.0); Lymphocytes # 2.2 K/mm3 (0.7-4.5); Lymphocytes % 22.5 % (10-50); Mean Corpuscular HGB Conc 33.4 g/dL (31.8-35.4); Mean Corpuscular Hemoglobin 31.3 pg (27.0-31.2); Mean Corpuscular Volume 93.8 fl (80-94); Mean Platelet Volume 9.1 fl (7.4-10.4); Monocytes # 0.4 K/mm3 (0.1-1.0); Monocytes % 4.4 % (1.7-9.3); Neutrophils % 70.4 % (37.0-80.0); Platelet Count 171 K/mm3 (142-424); Red Blood Count 4.21 M/mm3 (4.60-6.20); White Blood Count 9.9 K/mm3 (4.8-10.8)
[2023-12-05 06:26] LABS: Chloride 107 mmol/L (98-107)
[2023-12-05 06:27] LABS: Potassium 4.5 mmoL/L (3.5-5.1); Sodium 138 mmol/L (136-145)
[2023-12-05 06:29] LABS: Anion Gap 9.5 mEq/L (5-15); Blood Urea Nitrogen 14 mg/dl (9-20); Carbon Dioxide 26 mmol/L (22.0-30.0); Creatinine Clearance Estimated 206 mL/min (50-200); Estimated Glomerular Filt Rate 106 ml/min (>60); GFR (African American) 128 ML/MIN (>60)
[2023-12-05 06:30] LABS: Alanine Aminotransferase 24 U/L (12-78); Albumin/Globulin Ratio 1.5 (1.1-1.8); Alkaline Phosphatase 86 U/L (38-126); Aspartate Amino Transferase 31 U/L (17-59); Bilirubin,Total 0.7 mg/dl (0.2-1.3); Calcium 8.8 mg/dl (8.4-10.2); Globulin 2.6 g/dL (1.3-3.2); Glucose 94 mg/dl (74-100); Magnesium 1.7 mg/dl (1.6-2.3); Total Protein,Serum 6.6 g/dl (6.3-8.2); Troponin I < 0.01 ng/ml (0.00-0.034)
--- NOTE | 2023-12-05 08:24 | CA_ITS ---
APPROVED REPORT EXAM: Comprehensive 2D, Doppler, and color-flow Echocardiogram Rug Cleaner Helper: Cara Parson RVT Ht: 6 ft 4 in Wt: 255lbs BSA: 2.46 BP: 119/65 mmHg Indications: PE'S, CONCERN FOR EARLY HEART STRAIN ON CTA,CP,SOA,PLEURAL EFFUSIONS TDS-PT SCANNED ON BACK 2D Dimensions LA Volume 25.70 mL LA Volume Index 10.45 mL/m2 (M/F) 16-34 M-Mode Dimensions RVDd 3.10 cm (0.9-2.6) LA Diam 3.25 cm (1.9-4.0) LVDd 4.49 cm (3.5-5.7) LVDs 3.03 cm (3.5-5.7) IVSd 0.75 cm (0.6-1.1) PWd 0.28 cm (0.6-1.1) EF (Teich) 61.00% FS 32.50% EDV (Teich) 92.00 mL TAPSE 2.91 (<1.7) ESV (Teich) 35.90 mL LV Diastology E Decel Time 243 (160-240 msec) E/A Ratio 1.6 Aortic Valve CHRISTEL Index 1.29 cm2/m2 AoV Peak Luke. 97.0 (50-130 cm/s) AO Peak GR. 3.80 mmHg AO Mean GR. 1.80 (<5 mmHg) AO VTI 14.8 (18-25 cm) CHRISTEL (VTI) 3.25 (2.5-4.5 cm2) Mitral Valve MV E Max Luke. 76.0 (40-130 cm/s) MV A Velocity 47.0 (40-130 cm/s) E/A Ratio 1.64 MV PHT 71.0 ms Pulmonary Valve PV Peak Velocity 81.0 (50-150 cm/s) Tricuspid Valve TR P. Velocity 188.00 cm/s RAP Estimate 10.00 mmHg RVSP 24.10 mmHg Left Ventricle The left ventricle is normal size. The left ventricular systolic function is normal. The left ventricular ejection fraction is within the normal range. There is normal left ventricular wall thickness. There is normal LV segmental wall motion. The left ventricular diastolic function is normal. LVEF is 55%. Right Ventricle Right ventricle is mildly dilated. Right ventricle is mildly hypokinetic. Atria The left atrium size is normal. The right atrium size is normal. There is no Doppler evidence of interatrial shunt. Aortic Valve The aortic valve opens well. There is no aortic valvular stenosis. No aortic regurgitation is present. Mitral Valve The mitral valve is normal in structure. No evidence of mitral valve stenosis. There is no mitral valve regurgitation noted. Tricuspid Valve The tricuspid valve leaflets are thin and pliable. Trace tricuspid regurgitation. There is insufficient TR jet to estimate RVSP. Pulmonic Valve The pulmonary valve is normal in structure. Trace pulmonic regurgitation. Great Vessels The aortic root is normal in size. The ascending aorta is not well visualized. IVC is normal in size and collapses >50% with inspiration. Pericardium There is no pericardial effusion. Other Information Study Quality: Fair Conclusion Normal LV systolic function. Mild RV dilation with mild reduction in systolic function. No significant valvular stenosis or regurgitation. Electronically signed by : Izabel Mckinnon MD 12/07/2023 20:07:03
[2023-12-05] MEDS: FLUOXETINE 20MG CAPSULE 40 MG PO (08:39)
[2023-12-05] MEDS: ENOXAPARIN 120MG/0.8ML SYRINGE 115 MG SQ (08:41)
[2023-12-05 08:43] LABS: Troponin I < 0.01 ng/ml (0.00-0.034)
--- NOTE | 2023-12-05 09:23 | EXP.CARD.CON ---
History of Present Illness History of Present Illness Consult date: 12/05/23 Chief complaint: shoulder pain and SOA History of present illness: 23-year-old white male with a recent superficial venous thrombosis left greater saphenous vein. He saw PCP for this and was treated with NSAIDs elevation warm compress. This was approximately 1.5 weeks ago. Last night patient reports he was very restless before bed and had a gradual onset of worsening shoulder discomfort and shortness of breath. Eventually presented to the emergency room and was found to have bilateral PEs with mild to moderate clot burden and possible mild RV strain. He was started on treatment dose Lovenox and admitted overnight for observation. Vitals have remained normal since arrival and throughout the night. He has a 2D echo ordered and pending. He has repeat venous duplex ordered and pending. Patient reports he is feeling much better this morning. There is a family history of DVT but one incident was an uncle and this was the setting of cancer. Patient's grandmother also had VTE in her 70s and the details of this are unclear. Patient denies any recent injury surgery or inactivity. 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 Approximately 1 month ago he was started on a new medication called Lybalvi which does carry a risk of VTE. [facility] Disclaimer: The information contained in this section may have been updated after the patient was seen, as this information can be updated by other users. Medical History Bipolar 1 disorder Depression Anxiety Asthma Surgical History History of tympanostomy tube placement Family History Grandmother Blood clot in leg Social History Smoking Status: Never smoker alcohol intake: never current occupational status: student Travel in the last 8 weeks: None Review of Systems Constitutional Constitutional: Denies headache(s) and Denies weakness Eyes Eyes: Denies loss of vision ENT Ears, Nose, Mouth, and Throat: Denies dizziness and Denies headache(s) *Cardiovascular Cardiovascular: Denies chest pain and Reports dyspnea *Respiratory Respiratory: Denies cough and Reports dyspnea *Gastrointestinal Gastrointestinal: Denies change in stool character, Denies nausea and Denies vomiting *Genitourinary Genitourinary: Denies difficulty urinating *Musculoskeletal Musculoskeletal: Denies numbness and Denies tingling Comments: Shoulder pain Integumentary/Breasts Skin/Breast: Denies changing lesions *Neurologic Neurologic: Denies dizziness, Denies headache(s), Denies loss of vision, Denies numbness, Denies tingling and Denies weakness Exam Data for Last 24 hours Vital signs and Labs for Last 24 Hours: Temp Pulse Resp BP Pulse Ox O2 Del Method 98.1 F 86 16 123/67 96 Room Air 12/05/23 08:00 12/05/23 08:00 12/05/23 08:00 12/05/23 08:00 12/05/23 08:00 12/05/23 09:00 Laboratory Results - last 24 hr 12/05/23 02:00: WBC 9.2, RBC 4.32 L, Hgb 13.5 L, Hct 40.6 L, MCV 94.0, MCH 31.3 H, MCHC 33.3, RDW 13.0, Plt Count 180, MPV 9.0, Neut % (Auto) 53.8, Lymph % (Auto) 37.1, Noble % (Auto) 4.2, Eos % (Auto) 3.6, Baso % (Auto) 1.2, Neut # (Auto) 4.9, Lymph # (Auto) 3.4, Noble # (Auto) 0.4, Eos # (Auto) 0.3, Baso # (Auto) 0.1, PT 10.7, INR 0.95, Sodium 138, Potassium 3.8, Chloride 106, Carbon Dioxide 26, Anion Gap 9.8, BUN 15, Creatinine 0.80, Estimated Creat Clear 232, Estimated GFR 121, Est GFR ( Amer) 146, Glucose 110 H, Calcium 8.5, Total Bilirubin 0.6, AST 37, ALT 28, Alkaline Phosphatase 65, Troponin I < 0.01, Total Protein 7.0, Albumin 3.9, Globulin 3.1, Albumin/Globulin Ratio 1.3 12/05/23 05:13: WBC 9.9, RBC 4.21 L, Hgb 13.2 L, Hct 39.5 L, MCV 93.8, MCH 31.3 H, MCHC 33.4, RDW 13.0, Plt Count 171, MPV 9.1, Neut % (Auto) 70.4, Lymph % (Auto) 22.5, Noble % (Auto) 4.4, Eos % (Auto) 2.2, Baso % (Auto) 0.6, Neut # (Auto) 7.0, Lymph # (Auto) 2.2, Noble # (Auto) 0.4, Eos # (Auto) 0.2, Baso # (Auto) 0.1, Sodium 138, Potassium 4.5, Chloride 107, Carbon Dioxide 26, Anion Gap 9.5, BUN 14, Creatinine 0.90, Estimated Creat Clear 206, Estimated GFR 106, Est GFR ( Amer) 128, Glucose 94, Calcium 8.8, Magnesium 1.7, Total Bilirubin 0.7, AST 31, ALT 24, Alkaline Phosphatase 86, Troponin I < 0.01, Total Protein 6.6, Albumin 4.0, Globulin 2.6, Albumin/Globulin Ratio 1.5 12/05/23 08:13: Troponin I < 0.01 I & O for Last 24 hours: Intake & Output 12/02/23 12/03/23 12/04/23 12/05/23 23:59 23:59 23:59 23:59 Intake Total 460 / 460 Balance 460 / 460 Weight 255 lb 6 oz Constitutional Constitutional: no acute distress and cooperative *Routine HEENT Exam Eye: Present PERRL *Routine Respiratory Exam Respiratory: Present CTA bilaterally; Absent accessory muscle use, wheezes or crackles *Routine Cardiovascular Exam Cardiovascular: Present RRR, Normal S1 and Normal S2; Absent murmur, gallop or rubs *Routine Abdominal Exam Abdominal: Present soft; Absent tenderness *Routine Extremities Exam Extremities: Present pulses intact; Absent cyanosis or edema Comments: Left inner thigh, site of prior superficial venous thrombosis, is now normal on inspection and palpation and nontender. *Routine Skin Exam Skin: Present intact; Absent erythema or wounds *Routine Neurological Exam Neurological: Present alert and oriented X3 Routine Psychiatric Exam Psychiatric: Present cooperative Meds Home Medications and Allergies Home Medications ?Medication ?Instructions ?Recorded ?Confirmed ?Type albuterol sulfate 90 mcg/actuation 2 puff inhalation Q6H PRN Asthma 10/13/23 12/05/23 History aerosol inhaler ibuprofen 800 mg tablet (IBU) 800 mg PO Q8HP PRN Moderate Pain 11/27/23 12/05/23 Rx #30 tabs fluoxetine 40 mg capsule 40 mg PO DAILY 12/05/23 12/05/23 History olanzapine 15 mg-samidorphan 10 mg 1 tab PO HS 12/05/23 12/05/23 History tablet (Lybalvi) New Prescriptions to Start Prescriptions: Allergies Allergy/AdvReac Type Severity Reaction Status Date / Time amoxicillin Allergy Hives Verified 11/27/23 10:47 Assessment and Plan *Assessment and plan (1) Pulmonary emboli: Status: Acute Qualifiers: Acute cor pulmonale presence: unspecified Chronicity: acute Pulmonary embolism type: other Qualified Code(s): I26.99 - Other pulmonary embolism without acute cor pulmonale Category: Medical Code(s): I26.99 - Other pulmonary embolism without acute cor pulmonale (2) Superficial vein thrombosis: Status: Acute Category: Medical Code(s): I82.890 - Acute embolism and thrombosis of other specified veins (3) Bipolar 1 disorder: Status: Acute Category: Medical Code(s): F31.9 - Bipolar disorder, unspecified Plan Acute bilateral pulmonary embolism -Appears possibly provoked Lybalvi but will need coagulopathy workup as an outpatient -Class I PESI Score - very low risk, 0-1.6% 30-day mortality -ECHO (prelim) - normal EF, no significant RV strain -Venous (prelim) - GSV superficial, no DVT -Can DC home with Xarelto treatment pack -OP referral to Dr. Jang - Hilda/Onc Bipolar I Disorder -I attempted to call his Psychiatrist, Dr. Brendon Dunn at [phone] to see about tapering off and/or finding alternative for his Lybalvi but have not heard back. He is on moderate dose which may need tapering to DC. CV stable for discharge.
--- NOTE | 2023-12-05 09:58 | EXP.PULM.CON ---
History of Present Illness History of present illness: Mr. Sam is a 24-year-old male, complaint of right-sided posterior shoulder pain, CTA was performed concerning for pulmonary embolism pulmonary was consulted for evaluation and management. He also has history of asthma using albuterol on as-needed basis, needing it once every 2 to 3 months with no nocturnal symptoms. [facility] Disclaimer: The information contained in this section may have been updated after the patient was seen, as this information can be updated by other users. Medical History (Updated 12/05/23 @ 11:13 by Rosita Mitchell MD) DVT (deep venous thrombosis) Bilateral pulmonary embolism Bipolar 1 disorder Depression Anxiety Asthma Surgical History History of tympanostomy tube placement Family History Grandmother Blood clot in leg Social History Smoking Status: Never smoker alcohol intake: never current occupational status: student Travel in the last 8 weeks: None Review of Systems Constitutional Constitutional: Denies headache(s) and Denies weakness Eyes Eyes: Denies itchy eyes and Denies loss of vision ENT Ears, Nose, Mouth, and Throat: Denies dizziness, Denies headache(s), Denies lip swelling and Denies throat swelling *Cardiovascular Cardiovascular: Reports chest pain and Reports dyspnea on exertion *Respiratory Respiratory: Denies chest congestion, Denies cough, Reports dyspnea on exertion, Denies excessive phlegm production, Denies hemoptysis, Denies pain on inspiration, Reports pain with cough and Denies wheezing *Gastrointestinal Gastrointestinal: Denies abdominal pain, Denies belching and Denies cramping *Musculoskeletal Musculoskeletal: Denies numbness and Denies tingling *Neurologic Neurologic: Denies dizziness, Denies headache(s), Denies loss of vision, Denies numbness, Denies tingling and Denies weakness Psychiatric Psychiatric: Denies homicidal ideation and Denies suicidal ideation Endocrine Endocrine: Denies heat intolerance Hematologic/Lymphatic Hematologic/Lymphatic: Denies easy bleeding and Denies lymphadenopathy Allergic/Immunologic Allergic/Immunologic: Denies itchy eyes, Denies lip swelling, Denies throat swelling and Denies wheezing Pulmonology Exam Inpatient Vital signs and Labs for Last 24 Hours: Temp Pulse Resp BP Pulse Ox O2 Del Method 98.1 F 86 16 123/67 96 Room Air 12/05/23 08:00 12/05/23 08:00 12/05/23 08:00 12/05/23 08:00 12/05/23 08:00 12/05/23 09:00 Laboratory Results - last 24 hr 12/05/23 02:00: WBC 9.2, RBC 4.32 L, Hgb 13.5 L, Hct 40.6 L, MCV 94.0, MCH 31.3 H, MCHC 33.3, RDW 13.0, Plt Count 180, MPV 9.0, Neut % (Auto) 53.8, Lymph % (Auto) 37.1, [place] % (Auto) 4.2, Eos % (Auto) 3.6, Baso % (Auto) 1.2, Neut # (Auto) 4.9, Lymph # (Auto) 3.4, [place] # (Auto) 0.4, Eos # (Auto) 0.3, Baso # (Auto) 0.1, PT 10.7, INR 0.95, Sodium 138, Potassium 3.8, Chloride 106, Carbon Dioxide 26, Anion Gap 9.8, BUN 15, Creatinine 0.80, Estimated Creat Clear 232, Estimated GFR 121, Est GFR ( Amer) 146, Glucose 110 H, Calcium 8.5, Total Bilirubin 0.6, AST 37, ALT 28, Alkaline Phosphatase 65, Troponin I < 0.01, Total Protein 7.0, Albumin 3.9, Globulin 3.1, Albumin/Globulin Ratio 1.3 12/05/23 05:13: WBC 9.9, RBC 4.21 L, Hgb 13.2 L, Hct 39.5 L, MCV 93.8, MCH 31.3 H, MCHC 33.4, RDW 13.0, Plt Count 171, MPV 9.1, Neut % (Auto) 70.4, Lymph % (Auto) 22.5, [place] % (Auto) 4.4, Eos % (Auto) 2.2, Baso % (Auto) 0.6, Neut # (Auto) 7.0, Lymph # (Auto) 2.2, [place] # (Auto) 0.4, Eos # (Auto) 0.2, Baso # (Auto) 0.1, Sodium 138, Potassium 4.5, Chloride 107, Carbon Dioxide 26, Anion Gap 9.5, BUN 14, Creatinine 0.90, Estimated Creat Clear 206, Estimated GFR 106, Est GFR ( Amer) 128, Glucose 94, Calcium 8.8, Magnesium 1.7, Total Bilirubin 0.7, AST 31, ALT 24, Alkaline Phosphatase 86, Troponin I < 0.01, Total Protein 6.6, Albumin 4.0, Globulin 2.6, Albumin/Globulin Ratio 1.5 12/05/23 08:13: Troponin I < 0.01 I & O for Labs for Last 24 Hours: Intake & Output 12/02/23 12/03/23 12/04/23 12/05/23 23:59 23:59 23:59 23:59 Intake Total 460 / 460 Balance 460 / 460 Weight 255 lb 6 oz Constitutional: Present no acute distress Head: Present normocephalic and atraumatic ENT: Present normal exam, normal oropharynx and mucous membranes moist Neck: Present normal inspection and full ROM Respiratory: Present able to speak in complete sentences; Absent respiratory distress, wheezes, crackles or diminished air movement Cardiac: Present S1/S2, Tachycardia and radial pulses present GI: Present soft and distention; Absent tenderness or guarding Skin: Present intact; Absent cyanosis or jaundice Neuro: Present alert, awake and oriented x 3 Extremities: Present normal inspection; Absent clubbing or cyanosis Psychiatric: Present normal affect and cooperative Meds Home Medications and Allergies Home Medications ?Medication ?Instructions ?Recorded ?Confirmed ?Type albuterol sulfate 90 mcg/actuation 2 puff inhalation Q6H PRN Asthma 10/13/23 12/05/23 History aerosol inhaler ibuprofen 800 mg tablet (IBU) 800 mg PO Q8HP PRN Moderate Pain 11/27/23 12/05/23 Rx #30 tabs fluoxetine 40 mg capsule 40 mg PO DAILY 12/05/23 12/05/23 History olanzapine 15 mg-samidorphan 10 mg 1 tab PO HS 12/05/23 12/05/23 History tablet (Lybalvi) New Prescriptions to Start Prescriptions: Allergies Allergy/AdvReac Type Severity Reaction Status Date / Time amoxicillin Allergy Hives Verified 11/27/23 10:47 Results Laboratory Findings 12/05/23 05:13 12/05/23 05:13 PT/INR, D-dimer PT 10.7 seconds (10.1-12.5) 12/05/23 02:00 INR 0.95 (0.9-1.1) 12/05/23 02:00 Abnormal lab findings: Abnormal Labs 12/05/23 12/05/23 02:00 05:13 RBC 4.32 L 4.21 L Hgb 13.5 L 13.2 L Hct 40.6 L 39.5 L MCH 31.3 H 31.3 H Glucose 110 H Assessment and Plan *Assessment and plan (1) Bilateral pulmonary embolism: Status: Acute Category: Medical Code(s): I26.99 - Other pulmonary embolism without acute cor pulmonale Plan Mr. Sam is a 24-year-old male, complaint of right-sided posterior shoulder pain, CTA was performed concerning for pulmonary embolism pulmonary was consulted for evaluation and management. He also has recent diagnosis of superficial venous thrombosis on his greater saphenous vein early November 2023. No evidence of DVT noted on that admission. He also has history of asthma using albuterol on as-needed basis, needing it once every 2 to 3 months with no nocturnal symptoms. CTA upon admission bilateral segmental pulmonary embolism clot burden left greater than right. Admits family history of pulmonary embolism in his grandmother and uncle. Uncle has diagnosis of lung cancer around his 60s while diagnosed with pulmonary embolism. Patient denies any prior history of blood clots. Relatively active at baseline not leading a sedentary life. Currently on Lybalvi which includes olanzapine which was shown to increase risk of DVT and PE by 2-3 fold. Hemodynamically stable. On room air. Serial troponins upon admission within normal limits. Currently on Lovenox twice daily full dose. On examination room air saturating 92% and above. No respiratory distress. Chest clear to auscultate. Denies any hemoptysis. Chest pain improving. Plan: Continue full dose anticoagulation for at least 3 months. Can be switched to oral anticoagulation upon discharge. Recommend hold olanzapine at this point of time given its known risk of pulmonary embolism in the setting of patient's current absence of other provoked risk factors for the noted pulmonary embolism. Hypercoagulable workup as an outpatient basis # Thank you for involving pulmonary in this patient care. Will follow the patient in pulmonary clinic 2 to 3 weeks post discharge.
--- NOTE | 2023-12-05 11:49 | P.DS_ITS ---
General Admission date:: 12/05/23 Discharge date: 12/05/23 HPI HPI HPI: This is a 23-year-old male obese presented to the ER for concerns of sudden onset right sided chest and shoulder pain started around 1:30 AM. He also reported shortness of breath and worse pain with deep breathing. Patient was recently diagnosed with a superficial blood clot in the left leg being treated with ibuprofen and recently aspirin was added to his daily regimen by his primary care physician. Patient reports no other areas of pain in the arms or legs, no calf swelling, no recent travel. Of note he reported left lower extremi ty clot, as well as family history of blood clots. Patient recently was diagnosed with a superficial vein thrombus in the left medial thigh. He was started on ibuprofen for management at that time. Patient denies fevers, cough, congestion, abdominal pain, vomiting, diarrhea, or other associated symptoms such as dizziness or lightheadedness. Hospital Course Hospital Course Hospital Course: This is a 23-year-old male obese presented to the ER for concerns of sudden onset right sided chest and shoulder pain started around 1:30 AM. He also reported shortness of breath and worse pain with deep breathing. Patient was recently diagnosed with a superficial blood clot in the left leg being treated with ibuprofen and recently aspirin was added to his daily regimen by his primary care physician. Patient reports no other areas of pain in the arms or legs, no calf swelling, no recent travel. Of note he reported left lower extremity clot, as well as family history of blood clots. Patient recently was diagnosed with a superficial vein thrombus in the left medial thigh. He was started on ibuprofen for management at that time. Patient denies fevers, cough, congestion, abdominal pain, vomiting, diarrhea, or other associated symptoms such as dizziness or lightheadedness. Patient was treateed for b/l pulmonary emboli, patient was evaluated by cardiology which recommended Xarelto and dc with outpatient f/u with oncology/hematology. patient and family at bedside agreed with dc plan. patient will be discharged in stable condition. Patient also counseled to stop libalvi for possible blood clotting side effect. On the date of discharge, the patient reported feeling stable. The patient was found not to be in any acute distress, and no new abnormalities on physical examination. Further, the patient expressed appropriate understanding of, and agreement with, the discharge recommendations, medications, and plan. Time spent 37 mins Exam Data for Last 24 hours Vital signs and Labs for Last 24 Hours: Temp Pulse Resp BP Pulse Ox O2 Del Method 98.1 F 86 16 123/67 96 Room Air 12/05/23 08:00 12/05/23 08:00 12/05/23 08:00 12/05/23 08:00 12/05/23 08:00 12/05/23 11:00 Laboratory Results - last 24 hr 12/05/23 02:00: WBC 9.2, RBC 4.32 L, Hgb 13.5 L, Hct 40.6 L, MCV 94.0, MCH 31.3 H, MCHC 33.3, RDW 13.0, Plt Count 180, MPV 9.0, Neut % (Auto) 53.8, Lymph % (Auto) 37.1, [place] % (Auto) 4.2, Eos % (Auto) 3.6, Baso % (Auto) 1.2, Neut # (Auto) 4.9, Lymph # (Auto) 3.4, [place] # (Auto) 0.4, Eos # (Auto) 0.3, Baso # (Auto) 0.1, PT 10.7, INR 0.95, Sodium 138, Potassium 3.8, Chloride 106, Carbon Dioxide 26, Anion Gap 9.8, BUN 15, Creatinine 0.80, Estimated Creat Clear 232, Estimated GFR 121, Est GFR ( Amer) 146, Glucose 110 H, Calcium 8.5, Total Bilirubin 0.6, AST 37, ALT 28, Alkaline Phosphatase 65, Troponin I < 0.01, Total Protein 7.0, Albumin 3.9, Globulin 3.1, Albumin/Globulin Ratio 1.3 12/05/23 05:13: WBC 9.9, RBC 4.21 L, Hgb 13.2 L, Hct 39.5 L, MCV 93.8, MCH 31.3 H, MCHC 33.4, RDW 13.0, Plt Count 171, MPV 9.1, Neut % (Auto) 70.4, Lymph % (Auto) 22.5, [place] % (Auto) 4.4, Eos % (Auto) 2.2, Baso % (Auto) 0.6, Neut # (Auto) 7.0, Lymph # (Auto) 2.2, [place] # (Auto) 0.4, Eos # (Auto) 0.2, Baso # (Auto) 0.1, Sodium 138, Potassium 4.5, Chloride 107, Carbon Dioxide 26, Anion Gap 9.5, BUN 14, Creatinine 0.90, Estimated Creat Clear 206, Estimated GFR 106, Est GFR ( Amer) 128, Glucose 94, Calcium 8.8, Magnesium 1.7, Total Bilirubin 0.7, AST 31, ALT 24, Alkaline Phosphatase 86, Troponin I < 0.01, Total Protein 6.6, Albumin 4.0, Globulin 2.6, Albumin/Globulin Ratio 1.5 12/05/23 08:13: Troponin I < 0.01 I & O for Last 24 hours: Intake & Output 12/02/23 12/03/23 12/04/23 12/05/23 23:59 23:59 23:59 23:59 Intake Total 460 / 460 Balance 460 / 460 Weight 115.836 kg Constitutional Constitutional: no acute distress *Routine HEENT Exam Head: Present normocephalic Eye: Present EOMI and PERRL ENT: Present mucous membranes moist *Routine Neck Exam Neck: Present supple; Absent lymphadenopathy *Routine Respiratory Exam Respiratory: Present CTA bilaterally *Routine Cardiovascular Exam Cardiovascular: Present RRR *Routine Abdominal Exam Abdominal: Present soft and normoactive bowel sounds; Absent tenderness *Routine Extremities Exam Extremities: Absent cyanosis, clubbing or edema *Routine Skin Exam Skin: Present warm; Absent rash *Routine Neurological Exam Neurological: Present alert and oriented X3 Results Data Completed and Pending Labs on day of discharge: Labs from last 24 hours 12/05/23 12/05/23 12/05/23 08:13 05:13 02:00 WBC 9.9 9.2 RBC 4.21 L 4.32 L Hgb 13.2 L 13.5 L Hct 39.5 L 40.6 L MCV 93.8 94.0 MCH 31.3 H 31.3 H MCHC 33.4 33.3 RDW 13.0 13.0 Plt Count 171 180 MPV 9.1 9.0 Neut % (Auto) 70.4 53.8 Lymph % (Auto) 22.5 37.1 [place] % (Auto) 4.4 4.2 Eos % (Auto) 2.2 3.6 Baso % (Auto) 0.6 1.2 Neut # (Auto) 7.0 4.9 Lymph # (Auto) 2.2 3.4 [place] # (Auto) 0.4 0.4 Eos # (Auto) 0.2 0.3 Baso # (Auto) 0.1 0.1 PT 10.7 INR 0.95 Sodium 138 138 Potassium 4.5 3.8 Chloride 107 106 Carbon Dioxide 26 26 Anion Gap 9.5 9.8 BUN 14 15 Creatinine 0.90 0.80 Estimated Creat Clear 206 232 Estimated GFR 106 121 Est GFR ( Amer) 128 146 Glucose 94 110 H Calcium 8.8 8.5 Magnesium 1.7 Total Bilirubin 0.7 0.6 AST 31 37 ALT 24 28 Alkaline Phosphatase 86 65 Troponin I < 0.01 < 0.01 < 0.01 Total Protein 6.6 7.0 Albumin 4.0 3.9 Globulin 2.6 3.1 Albumin/Globulin Ratio 1.5 1.3 DS: Diagnosis Discharge Diagnosis (1) Pulmonary emboli: Status: Acute Code(s): I26.99 - Other pulmonary embolism without acute cor pulmonale Qualifiers: Acute cor pulmonale presence: unspecified Chronicity: acute Pulmonary embolism type: other Qualified Code(s): I26.99 - Other pulmonary embolism without acute cor pulmonale (2) Superficial vein thrombosis: Status: Acute Code(s): I82.890 - Acute embolism and thrombosis of other specified veins (3) Bipolar 1 disorder: Status: Acute Code(s): F31.9 - Bipolar disorder, unspecified (4) Obesity (BMI 30-39.9): Status: Acute Code(s): E66.9 - Obesity, unspecified Meds Home Medications and Allergies Home Medications ?Medication ?Instructions ?Recorded ?Confirmed ?Type albuterol sulfate 90 mcg/actuation 2 puff inhalation Q6H PRN Asthma 10/13/23 12/05/23 History aerosol inhaler ibuprofen 800 mg tablet (IBU) 800 mg PO Q8HP PRN Moderate Pain 11/27/23 12/05/23 Rx #30 tabs fluoxetine 40 mg capsule 40 mg PO DAILY 12/05/23 12/05/23 History pantoprazole 40 mg tablet,delayed 40 mg PO HS 30 days #30 tabs 12/05/23 Rx release rivaroxaban 15 mg tablet (Xarelto) 15 mg PO DAILY 30 days #30 tabs 12/05/23 Rx New Prescriptions to Start Prescriptions: pantoprazole Sy Casillas rivaroxaban [Xarelto] Sy Casillas Allergies Allergy/AdvReac Type Severity Reaction Status Date / Time amoxicillin Allergy Hives Verified 11/27/23 10:47 Discharge Plan Disposition Patient Disposition: Home, Self-Care Condition: Good Follow up Plan Follow up with: Noam Jang MD [Staff Physician] - 12/11/23 9:30 am Dave Patel MD [Primary Care Provider] - 12/10/23 10:15 am Prescriptions/Medication Reconciliation: New pantoprazole 40 mg Tablet,Delayed Release (Dr/Ec) 40 mg PO HS 30 Days Qty: 30 0RF Xarelto 15 mg tablet 15 mg PO DAILY 30 Days Qty: 30 0RF Continued fluoxetine 40 mg capsule 40 mg PO DAILY Patient Comments: TAKE 1 CAPSULE BY MOUTH ONCE DAILY albuterol sulfate 90 mcg/actuation Hfa Aerosol Inhaler 2 puff INHALATION Q6H PRN (Reason: Asthma) ibuprofen [IBU] 800 mg tablet 800 mg PO Q8HP PRN (Reason: Moderate Pain) Qty: 30 0RF Discontinued Lybalvi 15-10 mg Tablet 1 tab PO HS Problem Reconciliation Problems Reviewed?: Yes Patient Discharge Instructions ACTIVITY: Ambulate as tolerated DIET: continue same diet Patient Instructions: DI for Pulmonary Embolism Print Language: Pashto Providers Primary Care Provider: Dave Patel Admit Provider: Sy Casillas Attending Provider: Sy Casillas
--- NOTE | 2023-12-09 13:50 | CARE MANAGER ---
Contacted patient related to hospital discharge. He states he is doing some better. He has new medications and is aware of follow up appointments. Denies questions or concerns at this time. HEATHER Brown
== END 2023-12-05 13:35 | disposition home or self-care (01) ==
LOC: ER 03:42 → 2ND 03:49
PROVIDERS: Nurse Practitioner Family; Admitting Provider Internal Medicine; Emergency Provider Emergency Medicine; PCP Internal Medicine Adolescent Medicine; Visit Provider Internal Medicine
DX: I26.99 Other pulmonary embolism without acute cor pulmonale (principal); I82.812 Embolism and thrombosis of superficial veins of left lower extremity; R07.9 Chest pain, unspecified; R06.02 Shortness of breath; M25.511 Pain in right shoulder; J45.909 Unspecified asthma, uncomplicated; F31.9 Bipolar disorder, unspecified; E66.9 Obesity, unspecified; Z68.31 Body mass index [BMI] 31.0-31.9, adult; Z79.01 Long term (current) use of anticoagulants
CPT/HCPCS: 36415; 71045; 71275; 80053; 83735; 84484; 85025; 85610; 93005; 93306; 93970; 99291; G0378; J1650; Q9967

== ENCOUNTER 2023-12-11 10:25 | Outpatient (CLI) | payer BC, SELFPAY ==
[2023-12-12 14:16] LABS: Beta-2 Glycoprotein I Ab, IgG <9 (0-20); Beta-2 Glycoprotein I Ab, IgM <9 (0-32)
[2023-12-12 15:26] LABS: Anti-Cardio Antibody IgM <9 MPL U/mL (0-12); Anti-Cardiolipin Antibody IgG 15 GPL U/mL (0-14)
[2023-12-13 01:51] LABS: Anti-Thrombin III Antigen 73 % (72-124); Antithrombin Activity 129 % (75-135); Protein S Antigen, Total 95 % (60-150)
[2023-12-13 17:18] LABS: Protein C Antigen 192 % (60-150)
== END 2023-12-11 23:59 | disposition home or self-care (01) ==
LOC: LAB 10:26
PROVIDERS: PCP Internal Medicine Adolescent Medicine; Visit Provider Internal Medicine Medical Oncology
DX: I26.99 Other pulmonary embolism without acute cor pulmonale (principal)
CPT/HCPCS: 36415; 81240; 81241; 85300; 85301; 85302; 85305; 86146; 86147

== ENCOUNTER 2023-12-19 11:59 | Emergency (ER) | payer BC, SELFPAY ==
--- NOTE | 2023-12-19 13:23 | EXP.UTC ---
Discharge Plan Disposition Patient Disposition: Home, Self-Care Condition: Good Prescriptions Prescriptions: New azithromycin [Zithromax] 250 mg tablet 250 mg PO UD DOSE PK Qty: 6 0RF Rx Instructions: Take two (2) tablets today, then one (1) tablet days #2 thru #5 methylprednisolone 4 mg Tablets,Dose Pack 4 mg PO DIRECTED 6 Days Qty: 21 0RF Rx Instructions: Take 1 pack as directed for 6 days [id number] [Bromfed DM] 2-30-10 mg/5 mL Syrup 5 ml PO Q6H PRN (Reason: Cough) Qty: 240 0RF No Action fluoxetine 40 mg capsule 40 mg PO DAILY Patient Comments: TAKE 1 CAPSULE BY MOUTH ONCE DAILY pantoprazole 40 mg Tablet,Delayed Release (Dr/Ec) 40 mg PO HS 30 Days Qty: 30 0RF Xarelto 15 mg tablet 15 mg PO BID 21 Days Qty: 42 0RF Rx Instructions: START WITH 15 MG TWICE DAILY FOR 21 DAYS, THEN BEGIN 20 MG DAILY THEREAFTER. albuterol sulfate 90 mcg/actuation Hfa Aerosol Inhaler 2 puff INHALATION Q6H PRN (Reason: Asthma) ibuprofen [IBU] 800 mg tablet 800 mg PO Q8HP PRN (Reason: Moderate Pain) Qty: 30 0RF Referrals Follow up/Referrals: Dave Patel MD [Primary Care Provider] - See instructions Activity Restrictions/Add. Instructions Additional Instructions/Restrictions: Drink plenty of fluids. Take tylenol or ibuprofen for pain or fever. Take the medications as directed. Follow up with your regular doctor. GO TO THE ER FOR ANY WORSENING SYMPTOMS Clinical Impressions Clinical Impression: Sinusitis Instructions Patient Instructions: Sinusitis, DI for Sinusitis Print Language Print Language: Irish Discharge ED Provider: Jono Pearce [facility] General Stated complaint: sinus congestion Time Seen by Provider: 12/19/23 13:23 Related Data Home Medications ?Medication ?Instructions ?Recorded ?Confirmed albuterol sulfate 90 mcg/actuation 2 puff inhalation Q6H PRN Asthma 10/13/23 12/11/23 aerosol inhaler fluoxetine 40 mg capsule 40 mg PO DAILY 12/05/23 12/11/23 Previous Rx's ?Medication ?Instructions ?Recorded ibuprofen 800 mg tablet (IBU) 800 mg PO Q8HP PRN Moderate Pain 11/27/23 #30 tabs pantoprazole 40 mg tablet,delayed 40 mg PO HS 30 days #30 tabs 12/05/23 release rivaroxaban 15 mg tablet (Xarelto) 15 mg PO BID 21 days #42 tabs 12/05/23 azithromycin 250 mg tablet 250 mg PO UD DOSE PK #6 tabs 12/19/23 (Zithromax) [id number] 5 ml PO Q6H PRN Cough #240 mL 12/19/23 2 mg-30 mg-10 mg/5 mL oral syrup (Bromfed DM) methylprednisolone 4 mg tablets in 4 mg PO DIRECTED 6 days #21 tabs 12/19/23 a dose pack Allergies Allergy/AdvReac Type Severity Reaction Status Date / Time amoxicillin Allergy Hives Verified 12/11/23 09:48 [facility] Disclaimer: The information contained in this section may have been updated after the patient was seen, as this information can be updated by other users. Medical History DVT (deep venous thrombosis) Bilateral pulmonary embolism Bipolar 1 disorder Depression Anxiety Asthma Surgical History History of tympanostomy tube placement Family History (Updated 12/11/23 @ 09:50 by EMERY Flower) Grandmother Blood clot in leg Other Asthma Coronary artery disease Diabetes Heart attack Hypertension Stroke Social History Smoking Status: Never smoker alcohol intake: never current occupational status: student Travel in the last 8 weeks: None ROS Obtained: Yes All systems reviewed & no additional complaints except as documented Constitutional Constitutional: Reports poor appetite Eyes Eyes: Reports system reviewed and no additional complaints, except as documented ENT Ears, Nose, Mouth
[2023-12-19 13:53] VITALS: BP 131/66; PULSE 76; RESP 20; TEMP 36.6; O2SAT 98; BMI 29.9
[2023-12-19 14:16] VITALS: BP 165/105; PULSE 104; RESP 18; TEMP 37.4; O2SAT 98
== END 2023-12-19 14:18 | disposition home or self-care (01) ==
PROVIDERS: Emergency Provider Nurse Practitioner Family; PCP Internal Medicine Adolescent Medicine
DX: U07.1 COVID-19 (principal); J01.90 Acute sinusitis, unspecified
CPT/HCPCS: 87635; 99212; 99214; G0463

== ENCOUNTER 2023-12-24 09:13 | Outpatient (CLI) | payer BC, SELFPAY ==
[2023-12-24 09:47] LABS: Basophils # 0.1 K/mm3 (0-0.2); Basophils % 0.8 % (0.1-2.0); Eosinophils # 0.1 K/mm3 (0.0-0.4); Eosinophils % 1.2 % (0.1-12.0); Hematocrit 42.9 % (42.0-52.0); Lymphocytes # 2.6 K/mm3 (0.7-4.5); Lymphocytes % 31.1 % (10-50); Mean Corpuscular HGB Conc 32.7 g/dL (31.8-35.4); Mean Corpuscular Hemoglobin 31.1 pg (27.0-31.2); Mean Platelet Volume 9.4 fl (7.4-10.4); Monocytes # 0.3 K/mm3 (0.1-1.0); Neutrophils # 5.3 K/mm3 (1.8-7.8); Platelet Count 188 K/mm3 (142-424); Red Blood Count 4.52 M/mm3 (4.60-6.20); Red Cell Distribution Width 13.3 % (11.5-17.5); White Blood Count 8.5 K/mm3 (4.8-10.8)
[2023-12-24 10:17] LABS: Activated Partial Thrombo Time 33.9 seconds (22.8-30.6); INR 1.23 (0.9-1.1); Prothrombin Time 13.5 seconds (10.1-12.5)
[2023-12-24 10:20] LABS: Albumin Level 4.4 g/dl (3.5-5.0); Chloride 106 mmol/L (98-107); Potassium 4.1 mmoL/L (3.5-5.1); Sodium 137 mmol/L (136-145)
[2023-12-24 10:23] LABS: Alanine Aminotransferase 20 U/L (12-78); Albumin/Globulin Ratio 1.7 (1.1-1.8); Alkaline Phosphatase 94 U/L (38-126); Anion Gap 10.1 mEq/L (5-15); Aspartate Amino Transferase 22 U/L (17-59); Bilirubin,Total 0.8 mg/dl (0.2-1.3); Blood Urea Nitrogen 18 mg/dl (9-20); Carbon Dioxide 25 mmol/L (22.0-30.0); Estimated Glomerular Filt Rate 121 ml/min (>60); GFR (African American) 146 ML/MIN (>60); Globulin 2.6 g/dL (1.3-3.2)
[2023-12-24 10:24] LABS: Calcium 8.7 mg/dl (8.4-10.2); Glucose 95 mg/dl (74-100)
[2023-12-25 17:29] LABS: Anti-Cardio Antibody IgM <9 MPL U/mL (0-12)
[2023-12-26 15:24] LABS: Protein C Antigen 107 % (60-150); Protein C Functional 132 % (73-180); Protein S Antigen, Total 94 % (60-150); Protein S Functional 163 % (63-140); Protein S, Free 123 % (61-136)
== END 2023-12-24 23:59 | disposition home or self-care (01) ==
LOC: LAB 09:15
PROVIDERS: PCP Internal Medicine Adolescent Medicine; Visit Provider Internal Medicine Adolescent Medicine
DX: I26.99 Other pulmonary embolism without acute cor pulmonale (principal); I82.890 Acute embolism and thrombosis of other specified veins
CPT/HCPCS: 36415; 80053; 85025; 85220; 85302; 85305; 85306; 85610; 85730; 86147

== ENCOUNTER 2024-03-09 19:59 | Emergency (ER) | payer BC, SELFPAY ==
[2024-03-09 20:00] VITALS: BP 142/88; PULSE 93; RESP 19; TEMP 36.8; O2SAT 96; BMI 30.4
--- NOTE | 2024-03-09 20:27 | ED_ITS ---
<Statement entered by Danielle Herbert DO - 03/10/24 00:28> I was consulted by the QUANG, and we discussed the complexity of the problems being addressed. I approved the treatment and management plan for this patient's care in the emergency department, thus performing a substantive portion of the medical decision making. Danielle Herbert DO Discharge Plan Disposition Patient Disposition: Home, Self-Care Condition: Good Chief Complaint: Extremity Problem,Nontraumatic Prescriptions Prescriptions: No Action fluoxetine 40 mg capsule 40 mg PO DAILY Patient Comments: TAKE 1 CAPSULE BY MOUTH ONCE DAILY pantoprazole 40 mg Tablet,Delayed Release (Dr/Ec) 40 mg PO HS 30 Days Qty: 30 0RF Xarelto 15 mg tablet 15 mg PO BID 21 Days Qty: 42 0RF Rx Instructions: START WITH 15 MG TWICE DAILY FOR 21 DAYS, THEN BEGIN 20 MG DAILY THEREAFTER. albuterol sulfate 90 mcg/actuation Hfa Aerosol Inhaler 2 puff INHALATION Q6H PRN (Reason: Asthma) ibuprofen [IBU] 800 mg tablet 800 mg PO Q8HP PRN (Reason: Moderate Pain) Qty: 30 0RF azithromycin [Zithromax] 250 mg tablet 250 mg PO UD DOSE PK Qty: 6 0RF Rx Instructions: Take two (2) tablets today, then one (1) tablet days #2 thru #5 methylprednisolone 4 mg Tablets,Dose Pack 4 mg PO DIRECTED 6 Days Qty: 21 0RF Rx Instructions: Take 1 pack as directed for 6 days jbhwwxujuhoferk-yretohjlf-QS [Bromfed DM] 2-30-10 mg/5 mL Syrup 5 ml PO Q6H PRN (Reason: Cough) Qty: 240 0RF Referrals Follow up/Referrals: Dave Patel MD [Primary Care Provider] - See instructions Activity Restrictions/Add. Instructions Additional Instructions/Restrictions: Follow-up with Dr. Jang within 48 hours. Return to ER for any worsening signs or symptoms including chest pain shortness of breath dyspnea. Clinical Impressions Clinical Impression: Left leg pain Print Language Print Language: Colombian Discharge ED Provider: Danielle Herbert General Adult HPI <NATHANIEL Tellez - Last Filed: 03/09/24 23:00> General Chief complaint: Extremity Problem,Nontraumatic Stated complaint: poss blood clot in LT knee Time Seen by Provider: 03/09/24 20:27 History of Present Illness HPI narrative: Patient presents for left lower extremity pain and swelling. Patient was diagnosed with a PE in November and ultimately diagnosed with a superficial left greater saphenous thrombus. Patient has been on Xarelto since and follows with Dr. Jang. Patient is normally very active but over the last 2 days has been off from work on vacation. He has been very sedentary. He noticed today that he started having redness swelling and pain at the medial aspect of his left knee. It has since subsided before presentation to the ER but patient was concerned that he had a new clot . He denies any chest pain fever chills hemoptysis hematochezia melena nausea vomiting diarrhea. During his previous HOWELL in November he had a CTA chest x-ray and venous Doppler study as well as an echocardiogram but had no further imaging of his left lower extremity. Related Data Home Medications ?Medication ?Instructions ?Recorded ?Confirmed albuterol sulfate 90 mcg/actuation 2 puff inhalation Q6H PRN Asthma 10/13/23 12/11/23 aerosol inhaler fluoxetine 40 mg capsule 40 mg PO DAILY 12/05/23 12/11/23 Previous Rx's ?Medication ?Instructions ?Recorded ibuprofen 800 mg tablet (IBU) 800 mg PO Q8HP PRN Moderate Pain 11/27/23 #30 tabs pantoprazole 40 mg tablet,delayed 40 mg PO HS 30 days #30 tabs 12/05/23 release rivaroxaban 15 mg tablet (Xarelto) 15 mg PO BID 21 days #42 tabs 12/05/23 azithromycin 250 mg tablet 250 mg PO UD DOSE PK #6 tabs 12/19/23 (Zithromax) jrwazulusnozzor-agkpdueprawnesv-VT 5 ml PO Q6H PRN Cough #240 mL 12/19/23 2 mg-30 mg-10 mg/5 mL oral syrup (Bromfed DM) methylprednisolone 4 mg tablets in 4 mg PO DIRECTED 6 days #21 tabs 12/19/23 a dose pack Allergies Allergy/AdvReac Type Severity Reaction Status Date / Time amoxicillin Allergy Hives Verified 12/11/23 09:48 [facility] <NATHANIEL Tellez - Last Filed: 03/09/24 23:00> [facility] Disclaimer: The information contained in this section may have been updated after the patient was seen, as this information can be updated by other users. Medical History DVT (deep venous thrombosis) Bilateral pulmonary embolism Bipolar 1 disorder Depression Anxiety Asthma Surgical History History of tympanostomy tube placement Family History (Updated 12/11/23 @ 09:50 by EMERY Flower) Grandmother Blood clot in leg Other Asthma Coronary artery disease Diabetes Heart attack Hypertension Stroke Social History Smoking Status: Never smoker alcohol intake: never current occupational status: student Travel in the last 8 weeks: None Other Medical History Have you received the Flu Vaccine for this season: No Have you received the Pneumonia Vaccine: No <NATHANIEL Tellez - Last Filed: 03/09/24 23:00> ROS Obtained: Yes Systems reviewed as appropriate & no additional complaints except as documented Physical Exam <NATHANIEL Tellez - Last Filed: 03/09/24 23:00> General General appearance: alert and in no apparent distress Eye Eye exam: Present EOMI Chest Chest inspection: Present normal inspection and symmetric chest wall rise Respiratory Respiratory exam: Present normal lung sounds bilaterally Cardiovascular Cardiovascular exam: Present regular rate and normal rhythm Neurological Exam Neurological exam: Present alert and oriented X3 Medical Decision Making <NATHANIEL Tellez - Last Filed: 03/09/24 23:00> Medical Records Medical records reviewed: Yes I reviewed the patient's medical records. Screening: Per USPSTF and CDC recommendations, given the prevalence of disease in our region, it is our hospital?s policy to screen for HIV and viral Hepatitis for all patients aged 18 and over and those with ongoing risk factors. Peyman Inquiry Pt receiving controlled substance: No Vital Signs: 03/09/24 20:00 03/09/24 20:30 03/09/24 21:00 Temperature 98.2 F Temperature Source Oral Pulse Rate 93 H 94 H Pulse Rate [Right] 93 H Respiratory Rate 19 Blood Pressure 135/84 149/93 H Blood Pressure [Right Arm] 142/88 H Blood Pressure Mean [Right Arm] 106 Blood Pressure Source [Right Arm] Automatic Cuff 02 Sat by Pulse Oximetry 96 96 95 Oxygen Delivery Method Room Air 03/09/24 21:30 03/09/24 22:30 Temperature Temperature Source Pulse Rate 102 H 93 H Pulse Rate [Right] Respiratory Rate Blood Pressure 139/94 H 145/86 H Blood Pressure [Right Arm] Blood Pressure Mean [Right Arm] Blood Pressure Source [Right Arm] 02 Sat by Pulse Oximetry 96 95 Oxygen Delivery Method Lab Data Lab results reviewed: Yes I reviewed the patient's lab results. Lab Results 03/09/24 21:22: WBC 6.5, RBC 4.26 L, Hgb 13.7 L, Hct 38.8 L, MCV 91.1, MCH 32.1 H, MCHC 35.2, RDW 13.8, Plt Count 166, MPV 9.2, Neut % (Auto) 53.0, Lymph % (Auto) 38.9, [place] % (Auto) 4.7, Eos % (Auto) 2.5, Baso % (Auto) 1.0, Neut # (Auto) 3.5, Lymph # (Auto) 2.6, [place] # (Auto) 0.3, Eos # (Auto) 0.2, Baso # (Auto) 0.1, PT 10.9, INR 0.97, Sodium 138, Potassium 4.1, Chloride 107, Carbon Dioxide 25, Anion Gap 10.1, BUN 16, Creatinine 0.70, Estimated Creat Clear 265, Estimated GFR 141, Est GFR ( Amer) 171, Glucose 108 H, Calcium 8.6 03/09/24 21:22 03/09/24 21:22 Orders (Tests/Meds): ED MEDICATIONS Discontinued Medications Generic Name Dose Route Start Last Admin Trade Name Freq PRN Reason Stop Dose Admin Iopamidol 100 ml 03/09/24 22:03 03/09/24 22:05 Iopamidol-370 (76%);100ml Bottle IV 03/09/24 22:04 100 ml ONCE ONE Administration Iopamidol 20 ml 03/09/24 22:04 03/09/24 22:06 Iopamidol-370 (76%);100ml Bottle IV 03/09/24 22:05 20 ml ONCE ONE Administration Sodium Chloride 50 ml 03/09/24 22:03 03/09/24 22:05 0.9 % Sodium Chloride 50 Ml Vial IV 03/09/24 22:04 50 ml ONCE ONE Administration Sodium Chloride 10 ml 03/09/24 22:03 03/09/24 22:05 Sodium Chloride 0.9% 10ml Syr (Rad Only) IV 03/09/24 22:04 10 ml ONCE ONE Administration Sodium Chloride 50 ml 03/09/24 22:04 03/09/24 22:05 0.9 % Sodium Chloride 50 Ml Vial IV 03/09/24 22:05 50 ml ONCE ONE Administration ORDERS Category Date Time Status CT angio abdomen/femoral Stat Cat Scan 03/09/24 20:46 Completed BMP [Basic Metabolic Panel] Stat Lab 03/09/24 21:22 Completed CBC w/Auto Diff [Complete Blood Count Auto Diff] Stat Lab 03/09/24 21:22 Completed INR [Prothrombin Time INR] Stat Lab 03/09/24 21:22 Completed Medical Decision Narrative: In summary patient is a 23-year-old male who presents to the emergency department for evaluation of left lower extremity pain and swelling at the left medial knee. Patient is hemodynamically stable upon arrival, afebrile. Physical exam is unremarkable currently as patient has no evidence of redness palpable cords although it is slightly tenderness to palpation at the medial aspect of his left lower extremity at the knee. Differential diagnosis includes venous congestion versus possible phlegmasia although less likely etc. Initial workup will be conducted with hematologic labs CT angio of the abdomen and left femoral. Initial interventions considered however patient is asymptomatic currently thus deferred. Initial workup reviewed by me shows a normal white count with no shift and the remainder of his hematologic labs are nonactionable. CTA of the pelvis through the popliteal does not show any evidence of thrombus cording to the radiologist. Given this patient is appropriate for discharge with close follow-up with hematology oncology. <Danielle Herbert, DO - Last Filed: 03/09/24 21:43> Vital Signs: 03/09/24 20:00 03/09/24 20:30 03/09/24 21:00 Temperature 98.2 F Temperature Source Oral Pulse Rate 93 H 94 H Pulse Rate [Right] 93 H Respiratory Rate 19 Blood Pressure 135/84 149/93 H Blood Pressure [Right Arm] 142/88 H Blood Pressure Mean [Right Arm] 106 Blood Pressure Source [Right Arm] Automatic Cuff 02 Sat by Pulse Oximetry 96 96 95 Oxygen Delivery Method Room Air 03/09/24 21:30 03/09/24 22:30 Temperature Temperature Source Pulse Rate 102 H 93 H Pulse Rate [Right] Respiratory Rate Blood Pressure 139/94 H 145/86 H Blood Pressure [Right Arm] Blood Pressure Mean [Right Arm] Blood Pressure Source [Right Arm] 02 Sat by Pulse Oximetry 96 95 Oxygen Delivery Method Lab Data Lab Results 03/09/24 21:22: WBC 6.5, RBC 4.26 L, Hgb 13.7 L, Hct 38.8 L, MCV 91.1, MCH 32.1 H, MCHC 35.2, RDW 13.8, Plt Count 166, MPV 9.2, Neut % (Auto) 53.0, Lymph % (Auto) 38.9, [place] % (Auto) 4.7, Eos % (Auto) 2.5, Baso % (Auto) 1.0, Neut # (Auto) 3.5, Lymph # (Auto) 2.6, [place] # (Auto) 0.3, Eos # (Auto) 0.2, Baso # (Auto) 0.1, PT 10.9, INR 0.97, Sodium 138, Potassium 4.1, Chloride 107, Carbon Dioxide 25, Anion Gap 10.1, BUN 16, Creatinine 0.70, Estimated Creat Clear 265, Estimated GFR 141, Est GFR ( Amer) 171, Glucose 108 H, Calcium 8.6 Orders (Tests/Meds): ED MEDICATIONS Discontinued Medications Generic Name Dose Route Start Last Admin Trade Name Freq PRN Reason Stop Dose Admin Iopamidol 100 ml 03/09/24 22:03 03/09/24 22:05 Iopamidol-370 (76%);100ml Bottle IV 03/09/24 22:04 100 ml ONCE ONE Administration Iopamidol 20 ml 03/09/24 22:04 03/09/24 22:06 Iopamidol-370 (76%);100ml Bottle IV 03/09/24 22:05 20 ml ONCE ONE Administration Sodium Chloride 50 ml 03/09/24 22:03 03/09/24 22:05 0.9 % Sodium Chloride 50 Ml Vial IV 03/09/24 22:04 50 ml ONCE ONE Administration Sodium Chloride 10 ml 03/09/24 22:03 03/09/24 22:05 Sodium Chloride 0.9% 10ml Syr (Rad Only) IV 03/09/24 22:04 10 ml ONCE ONE Administration Sodium Chloride 50 ml 03/09/24 22:04 03/09/24 22:05 0.9 % Sodium Chloride 50 Ml Vial IV 03/09/24 22:05 50 ml ONCE ONE Administration ORDERS Category Date Time Status CT angio abdomen/femoral Stat Cat Scan 03/09/24 20:46 Completed BMP [Basic Metabolic Panel] Stat Lab 03/09/24 21:22 Completed CBC w/Auto Diff [Complete Blood Count Auto Diff] Stat Lab 03/09/24 21:22 Completed INR [Prothrombin Time INR] Stat Lab 03/09/24 21:22 Completed ECG Data Tracing #1: I reviewed this ECG and interpreted as documented below: Normal sinus rhythm with a ventricular rate of [address] changes concerning for ischemia. Normal intervals ECG initial impression date: 03/09/24 ECG initial impression time: 20:34 Critical Care <NATHANIEL Tellez - Last Filed: 03/09/24 23:00> Critical Care Time Critical Care Time: No
[2024-03-09 20:30] VITALS: BP 135/84; PULSE 93; O2SAT 96
--- NOTE | 2024-03-09 20:33 | ECG_ITS ---
APPROVED REPORT Exam: Resting ECG HR:89 bpm ECG Measurements Heart Rate 89 AXES MS 136 P 20 QRSd 99 QRS 27 QT 339 T -8 QTc 386 Conclusion SINUS RHYTHM MINIMAL VOLTAGE CRITERIA FOR LVH, CONSIDER NORMAL VARIANT [MEETS CRITERIA IN ONE OF: R(aVL), S(V1), R(V5), R(V5/V6)+S(V1)] POSSIBLE INFERIOR MYOCARDIAL INFARCTION , OF INDETERMINATE AGE [30 ms Q WAVE IN II/aVF] ABNORMAL ECG Electronically signed by : NICOLE LOPEZ, 03/10/2024 00:46:53
--- NOTE | 2024-03-09 20:46 | CT_ITS ---
PROCEDURE INFORMATION: Exam: CTA Abdominal Aorta and Bilateral Lower Extremities (Run-off) With Contrast Exam date and time: 03/09/2024 9:50 PM Age: 23 years old Clinical indication: Other: Left medial thigh pain known thrombus TECHNIQUE: Imaging protocol: Computed tomographic angiography of the of the abdominal aorta, pelvis and bilateral lower extremities with contrast. 3D rendering (Not supervised by radiologist): MIP and/or 3D reconstructed images were created by the technologist. Radiation optimization: All CT scans at this facility use at least one of these dose optimization techniques: automated exposure control; mA and/or kV adjustment per patient size (includes targeted exams where dose is matched to clinical indication); or iterative reconstruction. Contrast material: ISOVUE 370; Contrast volume: 120 ml; Contrast route: INTRAVENOUS (IV); COMPARISON: 1. CT ANGIO CHEST PE PROTOCOL 12/05/2023 2:34 AM 2. CR XR CHEST PORTABLE 12/05/2023 2:22 AM 3. CR XR CHEST 2V 08/19/2022 12:23 PM FINDINGS: Aorta: No aortic aneurysm. No aortic dissection. Other arteries: Delayed phase imaging of the arteries demonstrates no acute pathology. Veins: The lower extremity veins are imaged from the level of the popliteal through the pelvis demonstrate no evidence for thrombosis. Liver: There is possible hepatic steatosis, evaluation is limited secondary to contrast enhancement. Gallbladder and biliary ducts: Unremarkable. No calcified stones. No ductal dilation. Pancreas: Unremarkable. No mass. No ductal dilation. Spleen: Normal. No splenomegaly. Adrenal glands: Normal. No mass. Kidneys and ureters: There is a horseshoe kidney. Stomach and bowel: Unremarkable. No obstruction. No mucosal thickening. Appendix: No evidence of appendicitis. Urinary bladder: Unremarkable. No mass. Reproductive: Unremarkable as visualized. Intraperitoneal space: There is a small volume of free fluid in the pelvis. Lymph nodes: No lymphadenopathy. Bones/joints: No acute fracture. No dislocation. Soft tissues: There is bilateral gynecomastia. IMPRESSION: Evaluation of the lower extremity vasculature through the abdomen and pelvis demonstrates no evidence for thrombosis
[2024-03-09 21:00] VITALS: BP 149/93; PULSE 94; O2SAT 95
[2024-03-09 21:30] VITALS: BP 139/94; PULSE 102; O2SAT 96
[2024-03-09 21:43] LABS: Basophils # 0.1 K/mm3 (0-0.2); Eosinophils # 0.2 K/mm3 (0.0-0.4); Eosinophils % 2.5 % (0.1-12.0); Hematocrit 38.8 % (42.0-52.0); Hemoglobin 13.7 g/dL (14.1-18.0); Lymphocytes # 2.6 K/mm3 (0.7-4.5); Lymphocytes % 38.9 % (10-50); Mean Corpuscular HGB Conc 35.2 g/dL (31.8-35.4); Mean Corpuscular Hemoglobin 32.1 pg (27.0-31.2); Mean Corpuscular Volume 91.1 fl (80-94); Mean Platelet Volume 9.2 fl (7.4-10.4); Monocytes # 0.3 K/mm3 (0.1-1.0); Monocytes % 4.7 % (1.7-9.3); Neutrophils # 3.5 K/mm3 (1.8-7.8); Platelet Count 166 K/mm3 (142-424); Red Blood Count 4.26 M/mm3 (4.60-6.20); Red Cell Distribution Width 13.8 % (11.5-17.5); White Blood Count 6.5 K/mm3 (4.8-10.8)
[2024-03-09 22:02] LABS: Anion Gap 10.1 mEq/L (5-15); Blood Urea Nitrogen 16 mg/dl (9-20); Calcium 8.6 mg/dl (8.4-10.2); Carbon Dioxide 25 mmol/L (22.0-30.0); Chloride 107 mmol/L (98-107); Creatinine Clearance Estimated 265 mL/min (50-200); Estimated Glomerular Filt Rate 141 ml/min (>60); GFR (African American) 171 ML/MIN (>60); Glucose 108 mg/dl (74-100); Potassium 4.1 mmoL/L (3.5-5.1); Sodium 138 mmol/L (136-145)
[2024-03-09] MEDS: SODIUM CHLORIDE 0.9% 10ML SYR (RAD ONLY) 10 ML IV (22:05)
[2024-03-09] MEDS: IOPAMIDOL-370 (76%);100ML BOTTLE 100 ML IV (22:05)
[2024-03-09] MEDS: 0.9 % SODIUM CHLORIDE 50 ML VIAL IV ×2 (22:05)
[2024-03-09] MEDS: IOPAMIDOL-370 (76%);100ML BOTTLE 20 ML IV (22:06)
[2024-03-09 22:30] VITALS: BP 145/86; PULSE 93; O2SAT 95
[2024-03-09 22:54] LABS: INR 0.97 (0.9-1.1); Prothrombin Time 10.9 seconds (10.1-12.5)
[2024-03-09 23:06] VITALS: BP 142/81; PULSE 90; RESP 16; TEMP 36.8; O2SAT 98
== END 2024-03-09 23:08 | disposition home or self-care (01) ==
PROVIDERS: Physician Assistant; Emergency Provider Emergency Medicine; PCP Internal Medicine Adolescent Medicine
DX: M79.605 Pain in left leg (principal)
CPT/HCPCS: 75635; 80048; 85025; 85610; 93005; 99285; Q9967

== ENCOUNTER 2024-03-27 11:50 | Emergency (ER) | payer BC, SELFPAY ==
[2024-03-27 12:10] VITALS: BP 122/81; PULSE 103; RESP 18; TEMP 36.8; O2SAT 95; BMI 32.1
--- NOTE | 2024-03-27 12:10 | EXP.UTC ---
Discharge Plan Disposition Patient Disposition: Home, Self-Care Condition: Good Prescriptions Prescriptions: New juibzolnoyemwke-mlzficiad-ZD [Bromfed DM] 2-30-10 mg/5 mL Syrup 5 ml PO Q6H PRN (Reason: Cough) Qty: 240 0RF azithromycin [Zithromax] 250 mg tablet 250 mg PO UD DOSE PK Qty: 6 0RF Rx Instructions: Take two (2) tablets today, then one (1) tablet days #2 thru #5 No Action fluoxetine 40 mg capsule 40 mg PO DAILY Patient Comments: TAKE 1 CAPSULE BY MOUTH ONCE DAILY Xarelto 15 mg tablet 15 mg PO BID 21 Days Qty: 42 0RF Rx Instructions: START WITH 15 MG TWICE DAILY FOR 21 DAYS, THEN BEGIN 20 MG DAILY THEREAFTER. divalproex 250 mg tablet,delayed release (DR/EC) 250 mg PO DAILY Patient Comments: TAKE 1 TABLET BY MOUTH TWICE DAILY Lybalvi 15-10 mg tablet 15 tab PO DAILY Referrals Follow up/Referrals: Dave Patel MD [Primary Care Provider] - See instructions Activity Restrictions/Add. Instructions Additional Instructions/Restrictions: Drink plenty of fluids. Take tylenol or ibuprofen for pain or fever. Take the medications as directed. Follow up with your regular doctor. GO TO THE ER FOR ANY WORSENING SYMPTOMS Clinical Impressions Clinical Impression: Sinusitis, Pharyngitis Instructions Patient Instructions: Sinusitis, DI for Sinusitis Print Language Print Language: Turkish Discharge ED Provider: Jono Pearce [facility] [place] General Stated complaint: congestion discomfort sore throat Time Seen by Provider: 03/27/24 12:10 Related Data Home Medications ?Medication ?Instructions ?Recorded ?Confirmed fluoxetine 40 mg capsule 40 mg PO DAILY 12/05/23 03/27/24 divalproex 250 mg tablet,delayed 250 mg PO DAILY 03/27/24 03/27/24 release olanzapine 15 mg-samidorphan 10 mg 15 tab PO DAILY 03/27/24 03/27/24 tablet (Lybalvi) Previous Rx's ?Medication ?Instructions ?Recorded rivaroxaban 15 mg tablet (Xarelto) 15 mg PO BID 21 days #42 tabs 12/05/23 azithromycin 250 mg tablet 250 mg PO UD DOSE PK #6 tabs 03/27/24 (Zithromax) ojaebdnpumbhnao-fblwqayxyihkeur-ZT 5 ml PO Q6H PRN Cough #240 mL 03/27/24 2 mg-30 mg-10 mg/5 mL oral syrup (Bromfed DM) Allergies Allergy/AdvReac Type Severity Reaction Status Date / Time amoxicillin Allergy Hives Verified 12/11/23 09:48 [facility] Disclaimer: The information contained in this section may have been updated after the patient was seen, as this information can be updated by other users. Medical History DVT (deep venous thrombosis) Bilateral pulmonary embolism Bipolar 1 disorder Depression Anxiety Asthma Surgical History History of tympanostomy tube placement Family History (Updated 12/11/23 @ 09:50 by EMERY Flower) Grandmother Blood clot in leg Other Asthma Coronary artery disease Diabetes Heart attack Hypertension Stroke Social History Smoking Status: Never smoker alcohol intake: never current occupational status: student ROS Obtained: Yes All systems reviewed & no additional complaints except as documented Constitutional Constitutional: Reports chills and Reports fever(s) Eyes Eyes: Denies eye discharge ENT Ears, Nose, Mouth, and Throat: Reports as per HPI Cardiovascular Cardiovascular: Denies chest pain Respiratory Respiratory: Denies chest congestion and Reports cough Gastrointestinal Gastrointestingal: Reports nausea; Denies abdominal pain, constipation, cramping, diarrhea or vomiting Musculoskeletal Musculoskeletal: Denies arthralgias Integumentary/Breasts Skin/Breast: Denies rash Neurologic Neurologic: Denies paresthesias Physical Exam General General appearance: alert and in no apparent distress Head Head exam: atraumatic, normocephalic and normal inspection Eye Eye exam: Present normal appearance; Absent PERRL or EOMI ENT ENT exam: Present mucous membranes moist and normal external ear exam Expanded ENT Exam TM/Canal exam: Bilateral TM: erythema, bulging and effusion Nose exam: Absent sinus tenderness Nasal speculum exam: Bilateral: normal Mouth exam: Present normal external inspection and other; Absent drooling Teeth exam: Present normal inspection Throat exam: Present tonsillar erythema and tonsillomegaly Neck Neck exam: Present normal inspection, full ROM and trachea midline; Absent tenderness, meningismus or lymphadenopathy Chest Chest inspection: Present normal inspection and symmetric chest wall rise; Absent tenderness Respiratory Respiratory exam: Present normal lung sounds bilaterally; Absent respiratory distress, wheezes or stridor Cardiovascular Cardiovascular exam: Present regular rate, normal rhythm and normal heart sounds; Absent tachycardia or irregular rhythm Abdominal Exam Abdominal exam: Present soft and normal bowel sounds; Absent distention, tenderness, guarding, rebound or rigidity Extremities Exam Extremities exam: Present normal inspection and normal capillary refill; Absent tenderness, joint swelling or calf tenderness Back Exam Back exam: Present normal inspection and full ROM; Absent tenderness, CVA tenderness (R) or CVA tenderness (L) Neurological Exam Neurological exam: Present alert, oriented X3, CN II-XII intact, normal gait and reflexes normal; Absent motor sensory deficit Psychiatric Psychiatric exam: Present normal affect and normal mood Skin Skin exam: Present warm, dry, intact and normal color Lymphatic Lymphatic Findings: no adenopathy Medical Decision Making Medical Records Medical records reviewed: No I reviewed the patient's medical records. Screening: Per USPSTF and CDC recommendations, given the prevalence of disease in our region, it is our hospital?s policy to screen for HIV and viral Hepatitis for all patients aged 18 and over and those with ongoing risk factors. Peyman Inquiry Pt receiving controlled substance: No
[2024-03-27 13:01] LABS: UTC Influenza A Antigen Negative (Negative); UTC Influenza B Antigen Negative (Negative)
[2024-03-27 13:25] VITALS: BP 122/81; PULSE 103; RESP 18; TEMP 36.8
== END 2024-03-27 13:26 | disposition home or self-care (01) ==
PROVIDERS: Emergency Provider Nurse Practitioner Family; PCP Internal Medicine Adolescent Medicine
DX: J02.9 Acute pharyngitis, unspecified (principal); J01.90 Acute sinusitis, unspecified
CPT/HCPCS: 87804; 99213; G0381

== ENCOUNTER 2024-03-30 15:21 | Emergency (ER) | payer BC, SELFPAY ==
[2024-03-30 15:24] VITALS: BP 141/69; PULSE 100; RESP 18; TEMP 36.6; O2SAT 99; BMI 32.2
--- NOTE | 2024-03-30 15:27 | ED_ITS ---
<Statement entered by Danielle Herbert DO - 03/30/24 21:24> I was consulted by the QUANG, and we discussed the complexity of the problems being addressed. I approved the treatment and management plan for this patient's care in the emergency department, thus performing a substantive portion of the medical decision making. Danielle Herbert DO Discharge Plan Disposition Patient Disposition: Home, Self-Care Condition: Good Prescriptions Prescriptions: New methocarbamol 750 mg tablet 750 mg PO Q6H PRN (Reason: muscle spasm) Qty: 20 0RF No Action fluoxetine 40 mg capsule 40 mg PO DAILY Patient Comments: TAKE 1 CAPSULE BY MOUTH ONCE DAILY Xarelto 15 mg tablet 15 mg PO BID 21 Days Qty: 42 0RF Rx Instructions: START WITH 15 MG TWICE DAILY FOR 21 DAYS, THEN BEGIN 20 MG DAILY THEREAFTER. divalproex 250 mg tablet,delayed release (DR/EC) 250 mg PO DAILY Patient Comments: TAKE 1 TABLET BY MOUTH TWICE DAILY Lybalvi 15-10 mg tablet 15 tab PO DAILY [id number] [Bromfed DM] 2-30-10 mg/5 mL Syrup 5 ml PO Q6H PRN (Reason: Cough) Qty: 240 0RF azithromycin [Zithromax] 250 mg tablet 250 mg PO UD DOSE PK Qty: 6 0RF Rx Instructions: Take two (2) tablets today, then one (1) tablet days #2 thru #5 Referrals Follow up/Referrals: Provider,Referral, MD [Primary Care Provider] - See instructions Activity Restrictions/Add. Instructions Additional Instructions/Restrictions: As we discussed I have sent a muscle relaxer to your pharmacy. If you have continued or worsening signs or symptoms follow-up with your PCP return to the ER as needed. You may need further imaging like an MRI thus I have referred you to back to your PCP to make the appropriate referral. Clinical Impressions Clinical Impression: Acute thoracic back pain Qualifiers: Back pain laterality: midline Qualified Code(s): M54.6 - Pain in thoracic spine Chest pain Qualifiers: Chest pain type: unspecified Qualified Code(s): R07.9 - Chest pain, unspecified Print Language Print Language: Japanese Discharge ED Provider: Danielle Herbert General Adult HPI <NATHANIEL Tellez - Last Filed: 03/30/24 20:54> General Chief complaint: Chest Pain Stated complaint: chest pain Time Seen by Provider: 03/30/24 15:27 History of Present Illness HPI narrative: Patient presents for evaluation of initially chest pain . Patient states that he actually woke up Jesse morning and began having thoracic back pain. Since then it has begun to radiate through to his anterior chest. He actually denies chest pain shortness of breath fever chills hemoptysis hematochezia melena nausea vomit diarrhea. He denies any injury or trauma. He has no focal neurologic deficits. 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 Related Data Home Medications ?Medication ?Instructions ?Recorded ?Confirmed fluoxetine 40 mg capsule 40 mg PO DAILY 12/05/23 03/27/24 divalproex 250 mg tablet,delayed 250 mg PO DAILY 03/27/24 03/27/24 release olanzapine 15 mg-samidorphan 10 mg 15 tab PO DAILY 03/27/24 03/27/24 tablet (Lybalvi) Previous Rx's ?Medication ?Instructions ?Recorded rivaroxaban 15 mg tablet (Xarelto) 15 mg PO BID 21 days #42 tabs 12/05/23 azithromycin 250 mg tablet 250 mg PO UD DOSE PK #6 tabs 03/27/24 (Zithromax) [id number]-apdjlwaiumdtdcx-EL 5 ml PO Q6H PRN Cough #240 mL 03/27/24 2 mg-30 mg-10 mg/5 mL oral syrup (Bromfed DM) methocarbamol 750 mg tablet 750 mg PO Q6H PRN muscle spasm #20 03/30/24 tabs Allergies Allergy/AdvReac Type Severity Reaction Status Date / Time amoxicillin Allergy Hives Verified 12/11/23 09:48 [facility] <NATHANIEL Tellez - Last Filed: 03/30/24 20:54> [facility] Disclaimer: The information contained in this section may have been updated after the patient was seen, as this information can be updated by other users. Medical History DVT (deep venous thrombosis) Bilateral pulmonary embolism Bipolar 1 disorder Depression Anxiety Asthma Surgical History History of tympanostomy tube placement Family History (Updated 12/11/23 @ 09:50 by EMERY Flower) Grandmother Blood clot in leg Other Asthma Coronary artery disease Diabetes Heart attack Hypertension Stroke Social History Smoking Status: Never smoker alcohol intake: never current occupational status: student Travel in the last 8 weeks: None Other Medical History Have you received the Flu Vaccine for this season: No Have you received the Pneumonia Vaccine: No <NATHANIEL Tellez - Last Filed: 03/30/24 20:54> ROS Obtained: Yes Systems reviewed as appropriate & no additional complaints except as documented Physical Exam <NATHANIEL Tellez - Last Filed: 03/30/24 20:54> General General appearance: alert Respiratory Respiratory exam: Present normal lung sounds bilaterally Cardiovascular Cardiovascular exam: Present regular rate Neurological Exam Neurological exam: Present alert and oriented X3 Medical Decision Making <NATHANIEL Tellez - Last Filed: 03/30/24 20:54> Medical Records Medical records reviewed: Yes I reviewed the patient's medical records. Screening: Per USPSTF and CDC recommendations, given the prevalence of disease in our region, it is our hospital?s policy to screen for HIV and viral Hepatitis for all patients aged 18 and over and those with ongoing risk factors. Peyman Inquiry Pt receiving controlled substance: No Vital Signs: 03/30/24 15:24 03/30/24 15:59 03/30/24 16:30 Temperature 97.9 F Temperature Source Oral Pulse Rate 88 90 Pulse Rate [Left] 100 H Respiratory Rate 18 Blood Pressure 119/65 115/64 Blood Pressure [Right Arm] 141/69 H Blood Pressure Mean [Right Arm] 93 Blood Pressure Source [Right Arm] Automatic Cuff Blood Pressure Position [Right Arm] Sitting 02 Sat by Pulse Oximetry 99 97 96 Oxygen Delivery Method Room Air Room Air Room Air 03/30/24 17:10 Temperature 97.9 F Temperature Source Oral Pulse Rate 90 Pulse Rate [Left] Respiratory Rate 18 Blood Pressure 115/64 Blood Pressure [Right Arm] Blood Pressure Mean [Right Arm] Blood Pressure Source [Right Arm] Blood Pressure Position [Right Arm] 02 Sat by Pulse Oximetry Oxygen Delivery Method Lab Data Lab results reviewed: Yes I reviewed the patient's lab results. Lab Results 03/30/24 15:25: WBC 6.8, RBC 4.24 L, Hgb 13.4 L, Hct 37.7 L, MCV 88.8, MCH 31.7 H, MCHC 35.6 H, RDW 13.5, Plt Count 157, MPV 9.1, Neut % (Auto) 54.0, Lymph % (Auto) 38.0, [place] % (Auto) 4.8, Eos % (Auto) 2.6, Baso % (Auto) 0.7, Neut # (Auto) 3.7, Lymph # (Auto) 2.6, [place] # (Auto) 0.3, Eos # (Auto) 0.2, Baso # (Auto) 0.1, D-Dimer 0.28, Sodium 139, Potassium 4.1, Chloride 107, Carbon Dioxide 26, Anion Gap 10.1, BUN 16, Creatinine 0.70, Estimated Creat Clear 281, Estimated GFR 141, Est GFR ( Amer) 171, Glucose 115 H, Calcium 8.8, Total Bilirubin 0.6, AST 33, ALT 26, Alkaline Phosphatase 80, Troponin I < 0.01, NT-Pro-B Natriuret Pep < 20.0, Total Protein 6.6, Albumin 4.0, Globulin 2.6, Albumin/Globulin Ratio 1.5, Lipase 112 03/30/24 15:45: SARS-CoV-2 (PCR) Not detected, Influenza A Untype (PCR) Not detected, Influenza Type B (PCR) Not detected 03/30/24 15:25 03/30/24 15:25 Orders (Tests/Meds): ED MEDICATIONS Discontinued Medications Generic Name Dose Route Start Last Admin Trade Name Freq PRN Reason Stop Dose Admin Acetaminophen 1,000 mg 03/30/24 15:28 03/30/24 15:42 Acetaminophen 1,000mg/100ml Vial IV 03/30/24 15:29 1,000 mg ONCE ONE Administration Belladonna Alkaloids 60 ml 03/30/24 15:28 03/30/24 15:42 Belladonna Alkaloids 60 Ml Ml PO 03/30/24 15:29 60 ml ONCE ONE Administration Ketorolac Tromethamine 15 mg 03/30/24 15:28 03/30/24 15:42 Ketorolac 30mg/Ml Vial IV 03/30/24 15:29 15 mg ONCE ONE Administration Methocarbamol 500 mg 03/30/24 17:02 03/30/24 17:06 Methocarbamol 500mg Tablet PO 03/30/24 17:03 500 mg ONCE ONE Administration ORDERS Category Date Time Status Chest XR 2 view (NOT portable) [XR chest 2V] Stat Exams 03/30/24 15:28 Completed BNP [NT Pro Brain Natriuretic Pep.] Stat Lab 03/30/24 15:25 Completed CBC w/Auto Diff [Complete Blood Count Auto Diff] Stat Lab 03/30/24 15:25 Completed CMP [Comprehensive Metabolic Panel] Stat Lab 03/30/24 15:25 Completed D-Dimer Stat Lab 03/30/24 15:25 Completed Lipase Stat Lab 03/30/24 15:25 Completed Rapid PCR Covid and Flu A/B Stat Lab 03/30/24 15:45 Completed Trop I [Troponin I] Stat Lab 03/30/24 15:25 Completed HEART Score History (anamnesis): Slightly suspicious ECG: Normal Age: <45 years Risk factors: 1-2 risk factors Troponin: </= normal limit HEART Score: 1 Medical Decision Narrative: In summary patient is a 23-year-old male who presents to the emergency department for evaluation of chest pain .. Patient is hemodynamically stable upon arrival, afebrile. Sickle exam is actually unremarkable I am unable to elicit spinal or paraspinous muscle tenderness on palpation and no chest pain on palpation. Breath sounds are clear and equal bilaterally to the bases. Patient has no epigastric tenderness. Differential diagnosis includes musculoskeletal spasm versus esophageal spasm versus ACS versus PE etc. Initial workup will be conducted with plain film chest x-ray, twelve-lead EKG, hematologic labs. Initial interventions include Toradol Tylenol Robaxin. Initial workup reviewed by me shows that his hematologic labs are nonactionable patient's D-dimer is undetectable troponin is undetectable and my informal interpretation of his film x-ray shows no acute processes and his twelve-lead EKG was normal.. Upon repeat evaluation patient actually had modest improvement after initial intervention. Given this patient was reassured that he is not having a PE nor is it likely that he is having ACS he has no cardiac history. Given his improvement with initial interventions I recommended that he continue Robaxin and follow-up with his PCP for no improvement and further evaluation for potential musculoskeletal source. Patient verbalized understanding agreement. <Danielle Herbert, DO - Last Filed: 03/30/24 15:42> Vital Signs: 03/30/24 15:24 03/30/24 15:59 03/30/24 16:30 Temperature 97.9 F Temperature Source Oral Pulse Rate 88 90 Pulse Rate [Left] 100 H Respiratory Rate 18 Blood Pressure 119/65 115/64 Blood Pressure [Right Arm] 141/69 H Blood Pressure Mean [Right Arm] 93 Blood Pressure Source [Right Arm] Automatic Cuff Blood Pressure Position [Right Arm] Sitting 02 Sat by Pulse Oximetry 99 97 96 Oxygen Delivery Method Room Air Room Air Room Air 03/30/24 17:10 Temperature 97.9 F Temperature Source Oral Pulse Rate 90 Pulse Rate [Left] Respiratory Rate 18 Blood Pressure 115/64 Blood Pressure [Right Arm] Blood Pressure Mean [Right Arm] Blood Pressure Source [Right Arm] Blood Pressure Position [Right Arm] 02 Sat by Pulse Oximetry Oxygen Delivery Method Lab Data Lab Results 03/30/24 15:25: WBC 6.8, RBC 4.24 L, Hgb 13.4 L, Hct 37.7 L, MCV 88.8, MCH 31.7 H, MCHC 35.6 H, RDW 13.5, Plt Count 157, MPV 9.1, Neut % (Auto) 54.0, Lymph % (Auto) 38.0, [place] % (Auto) 4.8, Eos % (Auto) 2.6, Baso % (Auto) 0.7, Neut # (Auto) 3.7, Lymph # (Auto) 2.6, [place] # (Auto) 0.3, Eos # (Auto) 0.2, Baso # (Auto) 0.1, D-Dimer 0.28, Sodium 139, Potassium 4.1, Chloride 107, Carbon Dioxide 26, Anion Gap 10.1, BUN 16, Creatinine 0.70, Estimated Creat Clear 281, Estimated GFR 141, Est GFR ( Amer) 171, Glucose 115 H, Calcium 8.8, Total Bilirubin 0.6, AST 33, ALT 26, Alkaline Phosphatase 80, Troponin I < 0.01, NT-Pro-B Natriuret Pep < 20.0, Total Protein 6.6, Albumin 4.0, Globulin 2.6, Albumin/Globulin Ratio 1.5, Lipase 112 12/03/24 15:45: SARS-CoV-2 (PCR) Not detected, Influenza A Untype (PCR) Not detected, Influenza Type B (PCR) Not detected Orders (Tests/Meds): ED MEDICATIONS Discontinued Medications Generic Name Dose Route Start Last Admin Trade Name Madiq PRN Reason Stop Dose Admin Acetaminophen 1,000 mg 03/30/24 15:28 03/30/24 15:42 Acetaminophen 1,000mg/100ml Vial IV 03/30/24 15:29 1,000 mg ONCE ONE Administration Belladonna Alkaloids 60 ml 03/30/24 15:28 03/30/24 15:42 Belladonna Alkaloids 60 Ml Ml PO 03/30/24 15:29 60 ml ONCE ONE Administration Ketorolac Tromethamine 15 mg 03/30/24 15:28 03/30/24 15:42 Ketorolac 30mg/Ml Vial IV 03/30/24 15:29 15 mg ONCE ONE Administration Methocarbamol 500 mg 03/30/24 17:02 03/30/24 17:06 Methocarbamol 500mg Tablet PO 03/30/24 17:03 500 mg ONCE ONE Administration ORDERS Category Date Time Status Chest XR 2 view (NOT portable) [XR chest 2V] Stat Exams 03/30/24 15:28 Completed BNP [NT Pro Brain Natriuretic Pep.] Stat Lab 03/30/24 15:25 Completed CBC w/Auto Diff [Complete Blood Count Auto Diff] Stat Lab 03/30/24 15:25 Completed CMP [Comprehensive Metabolic Panel] Stat Lab 03/30/24 15:25 Completed D-Dimer Stat Lab 03/30/24 15:25 Completed Lipase Stat Lab 03/30/24 15:25 Completed Rapid PCR Covid and Flu A/B Stat Lab 03/30/24 15:45 Completed Trop I [Troponin I] Stat Lab 03/30/24 15:25 Completed ECG Data Tracing #1: I reviewed this ECG and interpreted as documented below: Sinus tachycardia with a ventricular to 104 bpm. Nonspecific T wave abnormality without acute ST changes concerning for ischemia. Normal intervals. ECG initial impression date: 03/30/24 ECG initial impression time: 15:30 Critical Care <NATHANIEL Tellez - Last Filed: 03/30/24 20:54> Critical Care Time Critical Care Time: No
--- NOTE | 2024-03-30 15:28 | XR_ITS ---
PROCEDURE INFORMATION: Exam: XR Chest Exam date and time: 03/30/2024 3:24 PM Age: 23 years old Clinical indication: Sternal or substernal pain; Additional info: Chest pain TECHNIQUE: Imaging protocol: Radiologic exam of the chest. Views: 2 views. COMPARISON: CT ANGIO CHEST PE PROTOCOL 12/05/2023 2:34 AM FINDINGS: Lungs: The lungs are clear. Pleural spaces: No pneumothorax or pleural effusion. Heart/Mediastinum: Cardiomediastinal silhouette is unremarkable. Bones/joints: No acute osseous or soft tissue abnormality. IMPRESSION: No acute cardiopulmonary abnormality.
--- NOTE | 2024-03-30 15:30 | ECG_ITS ---
APPROVED REPORT Exam: Resting ECG HR:104 bpm ECG Measurements Heart Rate 104 AXES NJ 140 P 56 QRSd 91 QRS 59 QT 330 T 2 QTc 390 Conclusion SINUS TACHYCARDIA NONSPECIFIC T-WAVE ABNORMALITY ABNORMAL RHYTHM ECG Electronically signed by : NICOLE LOPEZ, 03/30/2024 20:42:01
[2024-03-30 15:39] LABS: Basophils # 0.1 K/mm3 (0-0.2); Basophils % 0.7 % (0.1-2.0); Eosinophils # 0.2 K/mm3 (0.0-0.4); Eosinophils % 2.6 % (0.1-12.0); Hematocrit 37.7 % (42.0-52.0); Hemoglobin 13.4 g/dL (14.1-18.0); Lymphocytes # 2.6 K/mm3 (0.7-4.5); Mean Corpuscular HGB Conc 35.6 g/dL (31.8-35.4); Mean Corpuscular Hemoglobin 31.7 pg (27.0-31.2); Mean Corpuscular Volume 88.8 fl (80-94); Mean Platelet Volume 9.1 fl (7.4-10.4); Monocytes # 0.3 K/mm3 (0.1-1.0); Monocytes % 4.8 % (1.7-9.3); Neutrophils # 3.7 K/mm3 (1.8-7.8); Platelet Count 157 K/mm3 (142-424); Red Blood Count 4.24 M/mm3 (4.60-6.20); Red Cell Distribution Width 13.5 % (11.5-17.5); White Blood Count 6.8 K/mm3 (4.8-10.8)
[2024-03-30] MEDS: KETOROLAC 30MG/ML VIAL 15 MG IV (15:42)
[2024-03-30] MEDS: BELLADONNA ALKALOIDS 60 ML ML PO (15:42)
[2024-03-30] MEDS: ACETAMINOPHEN 1,000MG/100ML VIAL 1000 MG IV (15:42)
[2024-03-30 15:45] LABS: Alanine Aminotransferase 26 U/L (12-78); Albumin/Globulin Ratio 1.5 (1.1-1.8); Alkaline Phosphatase 80 U/L (38-126); Anion Gap 10.1 mEq/L (5-15); Aspartate Amino Transferase 33 U/L (17-59); Bilirubin,Total 0.6 mg/dl (0.2-1.3); Blood Urea Nitrogen 16 mg/dl (9-20); Calcium 8.8 mg/dl (8.4-10.2); Carbon Dioxide 26 mmol/L (22.0-30.0); Chloride 107 mmol/L (98-107); Creatinine Clearance Estimated 281 mL/min (50-200); Estimated Glomerular Filt Rate 141 ml/min (>60); GFR (African American) 171 ML/MIN (>60); Globulin 2.6 g/dL (1.3-3.2); Glucose 115 mg/dl (74-100); Lipase 112 U/L (23-300); Potassium 4.1 mmoL/L (3.5-5.1); Sodium 139 mmol/L (136-145); Total Protein,Serum 6.6 g/dl (6.3-8.2)
[2024-03-30 15:50] LABS: D-Dimer 0.28 ug/mL (0.0-0.5)
[2024-03-30 15:52] LABS: Coronavirus 19, PCR Not Detected (NotDetected); Influenza A, PCR Not Detected (NotDetected); Influenza B, PCR Not Detected (NotDetected)
[2024-03-30 15:59] VITALS: BP 119/65; PULSE 88; O2SAT 97
[2024-03-30 15:59] LABS: NT Pro Brain Natriuretic Pep. < 20.0 pg/mL (0-125)
--- NOTE | 2024-03-30 16:07 | PC.NURSE ---
pt resting in bed no needs at this time visitor at bs call light in reach
[2024-03-30 16:13] LABS: Troponin I < 0.01 ng/ml (0.00-0.034)
[2024-03-30 16:30] VITALS: BP 115/64; PULSE 90; O2SAT 96
[2024-03-30] MEDS: METHOCARBAMOL 500MG TABLET 500 MG PO (17:06)
[2024-03-30 17:10] VITALS: BP 115/64; PULSE 90; RESP 18; TEMP 36.6
== END 2024-03-30 17:11 | disposition home or self-care (01) ==
PROVIDERS: Physician Assistant; Emergency Provider Emergency Medicine
DX: R07.9 Chest pain, unspecified (principal); M54.6 Pain in thoracic spine
CPT/HCPCS: 71046; 80053; 83690; 83880; 84484; 85025; 85378; 87636; 93005; 96374; 96375; 99284; J0131; J1885